=== PATIENT | female | born 1970 | race Caucasian/White ===

== ENCOUNTER → 2016-05-23 | Outpatient (CLI) | payer MEDICARE, MEDICAID ==
[~2016-05-23] MED LIST: AMARYL4 MG PO; AMOXICILLIN500 MG PO; ASPIRIN81 M1 PO; AUGMENTIN 875 M1 TAB PO; AUGMENTIN 875875 MG PO; AVELOX400 MG PO; BACTRIM DS 8001 TA1 PO; BISOPROLOL FUMA10 MG PO; BISOPROLOL FUMAR5 MG PO; BYDUREON PEN2 MG IM; CEFTIN500 MG PO; CIPRO500 MG PO; CIPROFLOXACIN500 MG PO; CLARITIN10 MG PO; CYCLOBENZAPRINE10 MG PO; DIABETA5 MG PO; DIFLUCAN100 MG PO; DOXYCYCLINE100 M2 PO; FLAGYL500 MG PO; FLONASE ALLERG9.9 ML NAS; GLYBURIDE1.5 MG PO; HUMULIN R500 UNIT/1 SC; HYDROCODONE BIT1 T11 PO; IBUPROFEN800 MG PO; INVOKAMET1 TA3 PO; INVOKANA PO; KEFLEX500 MG PO; LANTUS100 U/ML SC; LASIX20 MG PO; LEVOFLOXACIN500 MG PO; LIPITOR20 MG PO; LORAZEPAM0.5 MG PO; MECLIZINE HCL25 M2 PO; METFORMIN1000 MG PO; MOTRIN800 MG PO; MUPIROCIN2% T; Motrin,Rufen800 MG PO; NEURONTIN100 MG PO; NEURONTIN300 MG PO; NITROSTAT0.4 MG SL; NOVAPLUS LIDOCAINE5% TP; NOVOLOG MI100 UNIT/2 SQ; NOVOLOG100 U/ML SC; PRENATAL1 TA7 PO; TOPAMAX100 MG PO; ULTRAM50 MG PO; VIBRAMYCIN100 MG PO; VICODIN 5/500 505 MG PO; VICODIN ES 7501 TAB PO; VICTOZA6 MG/ML SC; VIMPAT100 MG PO; XANAX0.25 MG PO; XYLOCAINE 5% T; ZOFRAN ODT4 MG SL; Zofran4 MG PO
[2016-05-23 11:15] LABS: HEMOGLOBIN A1c 7.5 % (4.8-5.6)
[2016-05-23 11:21] LABS: ALBUMIN 3.9 gm/dl (3.1-4.5); ALKALINE PHOSPHATASE 69 U/L (45-117); BILIRUBIN, TOTAL 0.6 mg/dl (0.2-1.0); BUN 21 mg/dl (7-24); CARBON DIOXIDE 26 mmol/L (21-32); CHLORIDE 105 mmol/L (98-107); CHOLESTEROL 209 mg/dL (<200); EST GLOM FILT AFRICAN AMERICAN > 60 ml/min; GLUCOSE 117 mg/dL (65-99); HDL CHOLESTEROL 43 mg/dl (40-60); LDL CHOLESTEROL 129 mg/dL (9-159); MAGNESIUM 2.3 mg/dL (1.5-2.1); POTASSIUM 4.1 mmol/L (3.5-5.1); SGOT/AST 12 IU/L (3-35); SGPT/ALT 25 U/L (12-78); SODIUM 140 mmol/L (136-145); TOTAL PROTEIN 7.9 gm/dL (6.4-8.2); TRIGLYCERIDES 186 mg/dl (<150); VLDL CHOLESTEROL 37 mg/dL (6-40)
== END | disposition home or self-care (01) ==
LOC: LAB 09:55
PROVIDERS: Physician Assistant Medical
DX: E11.65 Type 2 diabetes mellitus with hyperglycemia (principal); I10 Essential (primary) hypertension; E03.9 Hypothyroidism, unspecified; E55.9 Vitamin D deficiency, unspecified; E78.00 Pure hypercholesterolemia, unspecified

== ENCOUNTER → 2016-08-22 | Outpatient (CLI) | payer MEDICARE, MEDICAID ==
[2016-08-22 10:42] LABS: ALBUMIN 3.6 gm/dl (3.1-4.5); ALKALINE PHOSPHATASE 72 U/L (45-117); BILIRUBIN, TOTAL 0.4 mg/dl (0.2-1.0); BUN 14 mg/dl (7-24); CARBON DIOXIDE 28 mmol/L (21-32); CHLORIDE 106 mmol/L (98-107); CHOLESTEROL 157 mg/dL (<200); EST GLOM FILT AFRICAN AMERICAN > 60 ml/min; GLUCOSE 78 mg/dL (65-99); HDL CHOLESTEROL 36 mg/dl (40-60); LDL CHOLESTEROL 92 mg/dL (9-159); POTASSIUM 3.8 mmol/L (3.5-5.1); SGOT/AST 13 IU/L (3-35); SGPT/ALT 28 U/L (12-78); SODIUM 145 mmol/L (136-145); TOTAL PROTEIN 7.2 gm/dL (6.4-8.2); TRIGLYCERIDES 146 mg/dl (<150); VLDL CHOLESTEROL 29 mg/dL (6-40)
[2016-08-22 11:34] LABS: HEMOGLOBIN A1c 8.1 % (4.8-5.6)
== END | disposition home or self-care (01) ==
LOC: LAB 09:55
PROVIDERS: Physician Assistant Medical
DX: E11.65 Type 2 diabetes mellitus with hyperglycemia (principal); I10 Essential (primary) hypertension; E78.00 Pure hypercholesterolemia, unspecified; E04.2 Nontoxic multinodular goiter; E55.9 Vitamin D deficiency, unspecified

== ENCOUNTER → 2016-10-30 | Outpatient (CLI) | payer MEDICARE, MEDICAID ==
[2016-10-30 08:40] LABS: HEMOGLOBIN A1c 9.1 % (4.8-5.6)
[2016-10-30 08:43] LABS: ALBUMIN 3.4 gm/dl (3.1-4.5); ALKALINE PHOSPHATASE 74 U/L (45-117); BILIRUBIN, TOTAL 0.5 mg/dl (0.2-1.0); BUN 14 mg/dl (7-24); CARBON DIOXIDE 26 mmol/L (21-32); CHLORIDE 103 mmol/L (98-107); EST GLOM FILT AFRICAN AMERICAN > 60 ml/min; GLUCOSE 216 mg/dL (65-99); POTASSIUM 3.9 mmol/L (3.5-5.1); SGOT/AST 12 IU/L (3-35); SGPT/ALT 26 U/L (12-78); SODIUM 138 mmol/L (136-145); TOTAL PROTEIN 7.2 gm/dL (6.4-8.2)
== END | disposition home or self-care (01) ==
LOC: LAB 07:38
DX: E11.65 Type 2 diabetes mellitus with hyperglycemia (principal)

== ENCOUNTER → 2017-04-09 | Outpatient (CLI) | payer MEDICARE, MEDICAID ==
[2017-04-09 10:10] LABS: ALBUMIN 3.8 gm/dl (3.1-4.5); BUN 14 mg/dl (7-24); CHLORIDE 106 mmol/L (98-107); CHOLESTEROL 171 mg/dL (<200); CREATININE 0.79 mg/dL (0.55-1.02); POTASSIUM 3.3 mmol/L (3.5-5.1); SGOT/AST 15 IU/L (3-35); SGPT/ALT 28 U/L (12-78); SODIUM 142 mmol/L (136-145); TRIGLYCERIDES 151 mg/dl (<150); VLDL CHOLESTEROL 30 mg/dL (6-40)
[2017-04-09 10:12] LABS: ALKALINE PHOSPHATASE 81 U/L (45-117); HDL CHOLESTEROL 34 mg/dl (40-60); LDL CHOLESTEROL 107 mg/dL (9-159); TOTAL PROTEIN 7.6 gm/dL (6.4-8.2)
== END | disposition home or self-care (01) ==
LOC: LAB 08:54
PROVIDERS: Physician Assistant Medical
DX: I10 Essential (primary) hypertension (principal); E11.65 Type 2 diabetes mellitus with hyperglycemia; E78.00 Pure hypercholesterolemia, unspecified; E03.9 Hypothyroidism, unspecified; E55.9 Vitamin D deficiency, unspecified

== ENCOUNTER 2017-04-12 10:07 | Emergency (ER) | payer MEDICARE, MEDICAID ==
[~2017-04-12] VITALS: Ht 165.1 cm; Wt 96.6 kg
[2017-04-12 10:19] VITALS: BP 116/87
[2017-04-12] MEDS ORDERED: PREDNISONE10 MG PO (10:31)
[2017-04-12] MEDS ORDERED: EPIPEN 2-P0.3 MG/0.3 IJ (10:31)
== END 2017-04-12 11:16 | disposition home or self-care (01) ==
LOC: ED 10:07
DX: T78.40XA Allergy, unspecified, initial encounter (principal); E11.65 Type 2 diabetes mellitus with hyperglycemia; E11.40 Type 2 diabetes mellitus with diabetic neuropathy, unspecified; E78.5 Hyperlipidemia, unspecified; G40.909 Epilepsy, unspecified, not intractable, without status epilepticus; R00.0 Tachycardia, unspecified; Z88.8 Allergy status to other drugs, medicaments and biological substances; Z79.82 Long term (current) use of aspirin; Z79.4 Long term (current) use of insulin; Z79.899 Other long term (current) drug therapy; Z90.710 Acquired absence of both cervix and uterus; Z90.49 Acquired absence of other specified parts of digestive tract; Z90.89 Acquired absence of other organs; X58.XXXA Exposure to other specified factors, initial encounter

== ENCOUNTER 2017-04-20 08:15 | Emergency (ER) | payer MEDICARE, MEDICAID ==
[~2017-04-20] VITALS: Ht 165.1 cm; Wt 96.6 kg
[~2017-04-20 08:15] MED LIST changes: +EPIPEN 2-P0.3 MG/0.3 IJ; +PREDNISONE10 MG PO
[2017-04-20 08:50] LABS: BASO % 0.1 % (0.0-1.0); EOS # 0.1 10*3/uL (0.0-0.4); EOS % 0.7 % (1.0-4.0); HEMATOCRIT 44.8 % (37.0-47.0); HEMOGLOBIN 15.5 g/dl (12.0-16.0); LYMPH # 0.7 10*3/uL (1.3-4.4); LYMPH % 5.1 % (27.0-41.0); MEAN CELL VOLUME 83.4 fl (81.0-99.0); MEAN CORPUSCULAR HGB 28.9 pg (27.0-31.0); MEAN CORPUSCULAR HGB CONC 34.6 g/dl (33.0-37.0); MEAN PLATELET VOLUME 10.2 fl (9.6-12.3); MONO # 0.5 10*3/uL (0.1-1.0); NEUT # 11.9 10*3/uL (2.3-7.9); NEUT % 89.2 % (47.0-73.0); PLATELET COUNT AUTOMATED 221 10*3/uL (130-400); RED BLOOD COUNT 5.37 10*6/uL (4.10-5.10); RED CELL DISTRI WIDTH 12.8 % (0-14.5); WHITE BLOOD COUNT 13.4 10*3/uL (4.8-10.8)
[2017-04-20 08:59] LABS: ACT PARTIAL THROMBO TIME 20.4 SECONDS (20.8-31.5); INTERNATIONAL NORM RATIO 0.9 (2.0-3.5)
[2017-04-20 09:07] LABS: ALBUMIN 3.7 gm/dl (3.1-4.5); ALKALINE PHOSPHATASE 87 U/L (45-117); BUN 18 mg/dl (7-24); CHLORIDE 98 mmol/L (98-107); CREATININE 0.81 mg/dL (0.55-1.02); POTASSIUM 4.4 mmol/L (3.5-5.1); SGOT/AST 37 IU/L (3-35); SGPT/ALT 37 U/L (12-78); SODIUM 132 mmol/L (136-145); TOTAL PROTEIN 7.7 gm/dL (6.4-8.2)
[2017-04-20 09:14] LABS: TROPONIN I < 0.015 ng/ml (<0.045)
[2017-04-20 11:00] VITALS: BP 111/69
== END 2017-04-20 14:30 | disposition short-term general hospital (02) ==
LOC: ED 08:15
PROVIDERS: Emergency Medicine
DX: R53.1 Weakness (principal); R07.89 Other chest pain; R51 Headache; R11.10 Vomiting, unspecified; E11.65 Type 2 diabetes mellitus with hyperglycemia; E11.40 Type 2 diabetes mellitus with diabetic neuropathy, unspecified; E78.5 Hyperlipidemia, unspecified; G40.909 Epilepsy, unspecified, not intractable, without status epilepticus; Z98.890 Other specified postprocedural states; Z98.2 Presence of cerebrospinal fluid drainage device; Z90.710 Acquired absence of both cervix and uterus; Z79.899 Other long term (current) drug therapy; Z79.82 Long term (current) use of aspirin; Z79.4 Long term (current) use of insulin; Z88.8 Allergy status to other drugs, medicaments and biological substances

== ENCOUNTER → 2017-10-10 | Outpatient (CLI) | payer OTHER, MEDICAID ==
[2017-10-10 10:38] LABS: THYROID STIM HORMONE (HS) 1.74 uIU/ml (0.358-4.75)
== END | disposition home or self-care (01) ==
LOC: LAB 09:03
DX: E11.65 Type 2 diabetes mellitus with hyperglycemia (principal); E78.2 Mixed hyperlipidemia; E03.9 Hypothyroidism, unspecified

== ENCOUNTER → 2018-05-22 | Outpatient (CLI) | payer OTHER, MEDICAID ==
[~2018-05-22] MED LIST changes: +TAMIFLU 75MG CA75 MG PO
[2018-05-22 12:53] LABS: ALBUMIN 3.5 gm/dl (3.1-4.5); ALKALINE PHOSPHATASE 80 U/L (45-117); BILIRUBIN, DIRECT 0.2 mg/dL (0.0-0.2); BUN 20 mg/dl (7-24); CHLORIDE 100 mmol/L (98-107); CHOLESTEROL 187 mg/dL (<200); CREATININE 0.89 mg/dL (0.55-1.02); HDL CHOLESTEROL 33 mg/dl (40-60); LDL CHOLESTEROL 109 mg/dL (9-159); PHOSPHOROUS 4.1 mg/dL (2.5-4.9); SGOT/AST 12 IU/L (3-35); SGPT/ALT 24 U/L (12-78); SODIUM 134 mmol/L (136-145); THYROXINE (T4) TOTAL 10.7 ug/dl (4.8-13.9); TOTAL PROTEIN 7.3 gm/dL (6.4-8.2); TRIGLYCERIDES 224 mg/dl (<150); VLDL CHOLESTEROL 45 mg/dL (6-40)
[2018-05-22 12:58] LABS: THYROID STIM HORMONE (HS) 0.926 uIU/ml (0.358-4.75)
== END | disposition home or self-care (01) ==
LOC: MAMMO 05-21 08:20 → LAB 11:23 → MAMMO 11:30
PROVIDERS: Internal Medicine
DX: Z12.31 Encounter for screening mammogram for malignant neoplasm of breast (principal); E11.42 Type 2 diabetes mellitus with diabetic polyneuropathy; I10 Essential (primary) hypertension

== ENCOUNTER 2018-11-03 13:01 | Emergency (ER) | payer OTHER ==
[~2018-11-03] VITALS: Wt 92.1 kg
[2018-11-03 13:01] VITALS: BP 124/82
[2018-11-03 13:39] LABS: BASO # 0.1 10*3/uL (0.0-0.1); BASO % 0.4 % (0.0-1.0); EOS # 0.1 10*3/uL (0.0-0.4); EOS % 0.6 % (1.0-4.0); HEMATOCRIT 43.9 % (37.0-47.0); HEMOGLOBIN 14.8 g/dl (12.0-16.0); LYMPH # 1.5 10*3/uL (1.3-4.4); LYMPH % 11.2 % (27.0-41.0); MEAN CELL VOLUME 88.2 fl (81.0-99.0); MEAN CORPUSCULAR HGB 29.7 pg (27.0-31.0); MEAN CORPUSCULAR HGB CONC 33.7 g/dl (33.0-37.0); MEAN PLATELET VOLUME 10.2 fl (9.6-12.3); MONO # 0.8 10*3/uL (0.1-1.0); MONO % 5.7 % (3.0-9.0); NEUT # 11.1 10*3/uL (2.3-7.9); NEUT % 81.4 % (47.0-73.0); PLATELET COUNT AUTOMATED 237 10*3/uL (130-400); RED BLOOD COUNT 4.98 10*6/uL (4.10-5.10); RED CELL DISTRI WIDTH 12.9 % (0-14.5); WHITE BLOOD COUNT 13.6 10*3/uL (4.8-10.8)
[2018-11-03 13:50] LABS: BILIRUBIN NEGATIVE (NEGATIVE); BLOOD 3+ (NEGATIVE); CLARITY CLOUDY (CLEAR); COLOR YELLOW (YELLOW); GLUCOSE 3+ (NEGATIVE); KETONE 2+ (NEGATIVE); LEUKO ESTERASE TRACE (NEGATIVE); NITRITE NEGATIVE (NEGATIVE); UROBILINOGEN 0.2 E.U./dl (0.2-1.0)
[2018-11-03 13:53] LABS: ALBUMIN 3.9 gm/dl (3.1-4.5); ALKALINE PHOSPHATASE 95 U/L (45-117); BUN 16 mg/dl (7-24); CHLORIDE 104 mmol/L (98-107); POTASSIUM 4.1 mmol/L (3.5-5.1); SGOT/AST 8 IU/L (3-35); SGPT/ALT 19 U/L (12-78); SODIUM 139 mmol/L (136-145); TOTAL PROTEIN 7.8 gm/dL (6.4-8.2)
[2018-11-03 14:01] LABS: BACTERIA TRACE; EPITHELIAL CELLS 0-2; RBC TNTC rbc/hpf (0-2); YEAST TRACE
[2018-11-03] MEDS ORDERED: CEFUROXIME AXE500 MG PO (14:41)
[2018-11-03] MEDS ORDERED: PYRIDIUM200 M1 PO (14:41)
== END 2018-11-03 14:50 | disposition home or self-care (01) ==
LOC: ED 13:01
PROVIDERS: Nurse Practitioner Family
DX: N30.00 Acute cystitis without hematuria (principal); R53.83 Other fatigue; Z79.899 Other long term (current) drug therapy; Z79.82 Long term (current) use of aspirin; Z88.8 Allergy status to other drugs, medicaments and biological substances; Z87.442 Personal history of urinary calculi; Z90.710 Acquired absence of both cervix and uterus; Z98.890 Other specified postprocedural states; Z90.49 Acquired absence of other specified parts of digestive tract

== ENCOUNTER 2019-03-06 14:08 | Inpatient (IN) | payer OTHER ==
[~2019-03-06] VITALS: Ht 165.1 cm; Wt 90.7 kg
[~2019-03-06 14:08] MED LIST changes: +CEFUROXIME AXE500 MG PO; -LIPITOR20 MG PO; +LIPITOR40 MG PO; +PYRIDIUM200 M1 PO; +TOPAMAX100 M1 PO; -TOPAMAX100 MG PO
[2019-03-06 14:10] VITALS: BP 128/82
--- NOTE | 2019-03-06 14:23 | NUR ---
PT IN CT AT THIS TIME.
[2019-03-06 14:50] VITALS: BP 123/80
--- NOTE | 2019-03-06 15:04 | NUR ---
PT REPORTS SHE IS FEELING BETTER AT THIS TIME.
[2019-03-06 15:07] VITALS: BP 126/82
[2019-03-06 15:08] LABS: BASO # 0.1 10*3/uL (0.0-0.1); BASO % 0.4 % (0.0-1.0); EOS % 0.2 % (1.0-4.0); HEMATOCRIT 41.1 % (37.0-47.0); HEMOGLOBIN 14.2 g/dl (12.0-16.0); MEAN CELL VOLUME 87.1 fl (81.0-99.0); MEAN CORPUSCULAR HGB 30.1 pg (27.0-31.0); MEAN CORPUSCULAR HGB CONC 34.5 g/dl (33.0-37.0); MEAN PLATELET VOLUME 10.2 fl (9.6-12.3); MONO # 0.7 10*3/uL (0.1-1.0); MONO % 5.8 % (3.0-9.0); NEUT # 10.5 10*3/uL (2.3-7.9); NEUT % 84.9 % (47.0-73.0); PLATELET COUNT AUTOMATED 236 10*3/uL (130-400); RED BLOOD COUNT 4.72 10*6/uL (4.10-5.10); RED CELL DISTRI WIDTH 12.5 % (0-14.5); WHITE BLOOD COUNT 12.3 10*3/uL (4.8-10.8)
[2019-03-06 15:24] LABS: ALBUMIN 3.7 gm/dl (3.1-4.5); ALKALINE PHOSPHATASE 90 U/L (45-117); B-hCG (QUALITATIVE) NEGATIVE (NEGATIVE); BUN 20 mg/dl (7-24); CHLORIDE 100 mmol/L (98-107); CREATININE 1.12 mg/dL (0.55-1.02); LIPASE 159 U/L (73-393); POTASSIUM 4.3 mmol/L (3.5-5.1); SGOT/AST 11 IU/L (3-35); SGPT/ALT 19 U/L (12-78); SODIUM 131 mmol/L (136-145)
[2019-03-06 15:25] LABS: ACT PARTIAL THROMBO TIME 26.5 SECONDS (20.0-32.1); INTERNATIONAL NORM RATIO 0.9 (2.0-3.5)
[2019-03-06 15:26] LABS: ABG BASE EXCESS -0.7 mmol/L (-2.0-2.0); ABG HCO3 21.5 mmol/l (22-26); ABG O2 SATURATION 97.5 % (95-97); ARTERIAL BLOOD GAS PCO2 29.6 mmHg (35-45); ARTERIAL BLOOD GAS PH 7.473 (7.35-7.45)
[2019-03-06 15:30] LABS: THYROID STIM HORMONE (HS) 0.525 uIU/ml (0.358-4.75)
[2019-03-06 15:32] LABS: ETHYL ALCOHOL < 3.0 mg/dl (<3); TROPONIN I < 0.015 ng/ml (<0.045)
[2019-03-06 15:33] LABS: ACETAMINOPHEN (TYLENOL) < 5.0 ug/ml (10-30)
[2019-03-06 15:47] LABS: BILIRUBIN NEGATIVE (NEGATIVE); BLOOD NEGATIVE (NEGATIVE); CLARITY CLEAR (CLEAR); COLOR YELLOW (YELLOW); GLUCOSE 3+ (NEGATIVE); KETONE 1+ (NEGATIVE); LEUKO ESTERASE NEGATIVE (NEGATIVE); NITRITE NEGATIVE (NEGATIVE); PH 5.5 (5.0-9.0); UROBILINOGEN 0.2 E.U./dl (0.2-1.0)
[2019-03-06 15:59] LABS: URINE AMPHETAMINES < 1000 (1000ng/ml); URINE BARBITURATES < 200 (200ng/ml); URINE BENZODIAZEPINES < 200 (200ng/ml); URINE CANNABINOIDS (THC) < 50 (50ng/ml); URINE COCAINE < 300 (300ng/ml); URINE METHADONE < 300 (300ng/ml); URINE OPIATES < 300 (300ng/ml)
[2019-03-06 16:01] LABS: BACTERIA 1+
[2019-03-06 16:03] LABS: URINE PHENCYCLIDINE < 25 (25ng/ml)
[2019-03-06 16:29] VITALS: BP 123/80
[2019-03-06 17:40] VITALS: BP 106/67
--- NOTE | 2019-03-06 17:40 | NUR ---
A 48, admitted to ICCU, under the services of JEN Miranda DO with a diagnosis of SEPSIS,METABOLIC ENCEPHALOPATHY. Chief complaint is VOMITING,GARBLED SPEECH. Patient arrived via stretcher from ER. Monitor applied. Initial assessment completed. Vital signs taken and recorded. JEN MIRANDA DO notified of admission to the unit. Orders received. See assessment for past medical history, medications and allergies. Patient and/or family oriented to unit. [facility] ICCU visitation policy reviewed. Clothing/patient valuable form completed. ALEAH CROWLEY
[2019-03-06] MEDS ORDERED: ASPIR-TRIN325 MG PO (18:19)
--- NOTE | 2019-03-06 18:20 | NUR ---
DR REYES AWARE OF NEED FOR WOUND CARE ORDERS
[2019-03-06] MEDS ORDERED: ACETAZOLAMIDE250 MG PO (18:21)
[2019-03-06] MEDS ORDERED: PLAVIX75 M1 PO (18:22)
[2019-03-06] MEDS ORDERED: DICLOFENAC SOD50 MG PO (18:24)
[2019-03-06] MEDS ORDERED: NEURONTIN600 MG PO (18:26)
[2019-03-06] MEDS ORDERED: HYDROCODONE AC PO (18:28)
[2019-03-06] MEDS ORDERED: METOPROLOL SUCC50 M1 PO (18:31)
[2019-03-06] MEDS ORDERED: ZOFRAN4 MG PO (18:32)
[2019-03-06] MEDS ORDERED: ZANTAC 150150 MG PO (18:36)
--- NOTE | 2019-03-06 18:49 | NUR ---
IV LOPRESSOR GIVEN
--- NOTE | 2019-03-06 19:20 | NUR ---
DR RAMIREZ NOTIFIED OF CONSULT
--- NOTE | 2019-03-06 19:50 | NUR ---
PATIENT GIVEN TYLENOL FOR TEMP OF 102.1. WILL MONITOR
[2019-03-06 20:00] VITALS: BP 98/53
--- NOTE | 2019-03-06 23:18 | NUR ---
RECHECKED PATIENTS TEMP NOW 100.0 WILL CONTINUE TO MONITOR.
[2019-03-07] VITALS: BP 96/61
[2019-03-07 04:00] VITALS: BP 115/71
[2019-03-07 05:39] LABS: ALBUMIN 2.9 gm/dl (3.1-4.5); ALKALINE PHOSPHATASE 66 U/L (45-117); BUN 14 mg/dl (7-24); CHLORIDE 109 mmol/L (98-107); CHOLESTEROL 141 mg/dL (<200); CREATININE 0.64 mg/dL (0.55-1.02); HDL CHOLESTEROL 29 mg/dl (40-60); LDL CHOLESTEROL 89 mg/dL (9-159); PHOSPHOROUS 2.2 mg/dL (2.5-4.9); POTASSIUM 3.5 mmol/L (3.5-5.1); SGOT/AST 6 IU/L (3-35); SGPT/ALT 12 U/L (12-78); SODIUM 139 mmol/L (136-145); TOTAL PROTEIN 6.1 gm/dL (6.4-8.2); TRIGLYCERIDES 115 mg/dl (<150); VLDL CHOLESTEROL 23 mg/dL (6-40)
[2019-03-07 06:01] LABS: BASO % 0.4 % (0.0-1.0); EOS % 0.3 % (1.0-4.0); HEMATOCRIT 35.4 % (37.0-47.0); HEMOGLOBIN 11.7 g/dl (12.0-16.0); LYMPH # 1.7 10*3/uL (1.3-4.4); LYMPH % 21.1 % (27.0-41.0); MEAN CELL VOLUME 88.9 fl (81.0-99.0); MEAN CORPUSCULAR HGB 29.4 pg (27.0-31.0); MEAN CORPUSCULAR HGB CONC 33.1 g/dl (33.0-37.0); MEAN PLATELET VOLUME 10.3 fl (9.6-12.3); MONO # 0.6 10*3/uL (0.1-1.0); MONO % 7.4 % (3.0-9.0); NEUT # 5.6 10*3/uL (2.3-7.9); NEUT % 70.3 % (47.0-73.0); PLATELET COUNT AUTOMATED 207 10*3/uL (130-400); RED BLOOD COUNT 3.98 10*6/uL (4.10-5.10); RED CELL DISTRI WIDTH 12.6 % (0-14.5)
[2019-03-07 07:06] LABS: VITAMIN D, 25-HYDROXY 16.9 ng/mL (30-100)
[2019-03-07 08:00] VITALS: BP 113/70
--- NOTE | 2019-03-07 08:11 | NUR ---
PATIENT C/O HEADACHE. MEDICATED WITH TYLENOL PER PRN ORDER.
[2019-03-07 12:00] VITALS: BP 113/61
[2019-03-07 16:00] VITALS: BP 108/70
--- NOTE | 2019-03-07 18:30 | NUR ---
CALLED INTO PT'S ROOM, PT STATES AREA ON HER RIGHT LOWER LEG THAT HAS A SCABBED AREA WAS PREVIOUSLY REDENNED JUST AROUND THE SCAB, BUT NOW NOTES THAT REDNESS IS SPREADING. STATES THIS IS THE AREA SHE TYPICALLY GETS CELLULITIS. SPOKE WITH DR ROBERT REGARDING THIS, STATES TO CONTINUE MONTIORING IT.
[2019-03-07 20:00] VITALS: BP 116/69
[2019-03-08] VITALS (10 sets, daily range): BP systolic 82–117; BP diastolic 50–82
[2019-03-08 06:57] LABS: BASO # 0.1 10*3/uL (0.0-0.1); BASO % 0.6 % (0.0-1.0); EOS # 0.2 10*3/uL (0.0-0.4); HEMATOCRIT 36.5 % (37.0-47.0); HEMOGLOBIN 11.7 g/dl (12.0-16.0); LYMPH # 2.8 10*3/uL (1.3-4.4); LYMPH % 31.4 % (27.0-41.0); MEAN CELL VOLUME 90.8 fl (81.0-99.0); MEAN CORPUSCULAR HGB 29.1 pg (27.0-31.0); MEAN CORPUSCULAR HGB CONC 32.1 g/dl (33.0-37.0); MEAN PLATELET VOLUME 9.9 fl (9.6-12.3); MONO # 0.9 10*3/uL (0.1-1.0); MONO % 9.6 % (3.0-9.0); NEUT % 55.8 % (47.0-73.0); PLATELET COUNT AUTOMATED 209 10*3/uL (130-400); RED BLOOD COUNT 4.02 10*6/uL (4.10-5.10); RED CELL DISTRI WIDTH 13.2 % (0-14.5)
[2019-03-08 07:32] LABS: BUN 14 mg/dl (7-24); CHLORIDE 112 mmol/L (98-107); CREATININE 0.91 mg/dL (0.55-1.02); SODIUM 138 mmol/L (136-145)
--- NOTE | 2019-03-08 08:25 | NUR ---
PT CALLED OUT, STATING SHE FEELS LIKE SHE NEEDS SOMETHING FOR HER NERVES, PT IS TEARFUL AT THIS TIME. STATES SHE IS UPSET BECAUSE SHE FEELS LIKE SHE IS DEVELOPING CELLULITIS AGAIN. CALL PLACED TO DR ROBERT. STATES THEY WILL BE AROUND TO SEE PT.
--- NOTE | 2019-03-08 10:37 | NUR ---
DR AN MADE AWARE OF NEW CONSULT.
--- NOTE | 2019-03-08 15:00 | NUR ---
RIGHT LEG AND FOOT DRESSED PER ORDERS, TUBIGRIPS APPLIED. PT PREVIOUSLY DRESSED WOUNDS TO ARM.
--- NOTE | 2019-03-08 16:10 | NUR ---
BEDSIDE REPORT OBTAINED FROM SILVIO-TABATHA. PATIENT IS SITTING UP IN BED, AAOX3, FAMILY AT BEDSIDE. PATIENT VOICED NO COMPLAINTS, NO DISTRESS NOTED. RESP ARE ERND ON ROOM AIR. CALL LIGHT LEFT WITHIN REACH
--- NOTE | 2019-03-08 19:55 | NUR ---
INFORMED THAT MANUAL PRESSURE DONE AT THIS TIME OF , PATIENT STATED SHE FELT " TIRED" AND HAS BEEN CONTINUOUSLY DIZZY SINCE ADMISSION. HR 20 SPO2 98% ON ROOM AIR, FINGERSTICK BGM OF 298. STATES TO ORDER X1 1L NS BOLUS AND RECHECK PRESSURE 2HR AFTER COMPLETION, PATIENTS BED ALARM TURNED ON
--- NOTE | 2019-03-08 22:03 | NUR ---
INFORMED THATBP WAS RETAKEN 88/60 (MANUAL) D/T PATIENT STATING THAT SHE FELT WORSE THAN EARLIER, PATIENT APPEARANCE IS VASTLY PALE CONSIDERED TO AN HOUR AGO AND TOOK SEVERAL TIMES TO WAKE PATIENT UP, PATIENT LOOKS DEPLETED OF ENERGY AND WAS UNSTEADY ON HER FEET TO AMB TO BATHROOM. PATIENT IS STILL AAOX3. ASKED TO LOOK AT PATIENT, STATED NOT IN HOUSE AT THIS TIME. STATED TO GIVE PATIENT X1 MORE DOSE OF 1L NS BOLUS AND RECHECK ONCE COMPLETED AND CALL WITH RESULTS
--- NOTE | 2019-03-08 23:35 | NUR ---
CALLED AND INFORMED OF MANUAL PRESSURE OF 82/50 AFTER SECOND BLOUS COMPLETED. STATED TO TRANSFER PATIENT TO ICCU AND TO START ON LEVOPHED. INDUSTRIAL MANAGEMENT TEACHER MADE AWARE.
--- NOTE | 2019-03-08 23:40 | NUR ---
PATIENT TRANSFERED TO ICCU ROOM 5. REPORT GIVEN TO DARREN.
--- NOTE | 2019-03-08 23:45 | NUR ---
PT RECEIVED VIA BED FROM WHERE SHE HAD BEEN HAVING LOW BP'S ALL EVENING IN SPITE OF FLUID BOLUSES. PT DROWSY BUT ORIENTED AND APOLOGETIC ABOUT "CAUSING YOU GUYS ALL THIS TROUBLE". NEW IV OBTAINED LEFT UPPER ARM, #20 ACCUCATH, USING ULTRASOUND FOR GUIDANCE. BED PLACED IN LOW POSITION WITH WHEELS LOCKED AND BED EXIT ALARM ACTIVATED. PT CALLED HER SIGNIFICANT OTHER AND TOLD HIM SHE WAS NOW IN ICCU.
[2019-03-09] VITALS (41 sets, daily range): BP systolic 86–163; BP diastolic 50–85
--- NOTE | 2019-03-09 00:22 | NUR ---
Shift chart check completed.24 HR chart check completed.
--- NOTE | 2019-03-09 00:26 | NUR ---
MONITORING BP'S Q15M AND HAVE NOT STARTED LEVOPHED YET MAP BEEN >65.
--- NOTE | 2019-03-09 00:34 | NUR ---
DR HANNAH CALLED IN AND UPDATED ON CONDITION.
--- NOTE | 2019-03-09 01:28 | NUR ---
LEVOPHED STARTED AT 4MCG/MIN FOR SYSTOLIC BP 86 AND MAP JUST 65. PT EASILY AROUSES FROM SLEEP.
--- NOTE | 2019-03-09 02:51 | NUR ---
AT 0200 LEVOPHED TITRATED BY 50% TO 2MCG/MIN FOR BP 163/81 AND THEN CUT BY 50% AGAIN AT 0245 FOR BP 145/79.
--- NOTE | 2019-03-09 03:47 | NUR ---
UP TO BSC TO VOID. NO VOICED C/O DIZZINESS WHILE UP. VERY TALKATIVE. MOVES ALL EXTREMITIES. WAS STEADY GETTING UP TO BSC.
[2019-03-09 06:01] LABS: BASO # 0.1 10*3/uL (0.0-0.1); BASO % 1.1 % (0.0-1.0); EOS # 0.3 10*3/uL (0.0-0.4); EOS % 4.8 % (1.0-4.0); HEMATOCRIT 37.6 % (37.0-47.0); LYMPH # 2.4 10*3/uL (1.3-4.4); LYMPH % 35.7 % (27.0-41.0); MEAN CELL VOLUME 90.6 fl (81.0-99.0); MEAN CORPUSCULAR HGB 28.9 pg (27.0-31.0); MEAN CORPUSCULAR HGB CONC 31.9 g/dl (33.0-37.0); MEAN PLATELET VOLUME 10.1 fl (9.6-12.3); MONO # 0.7 10*3/uL (0.1-1.0); MONO % 9.8 % (3.0-9.0); NEUT # 3.2 10*3/uL (2.3-7.9); NEUT % 47.2 % (47.0-73.0); PLATELET COUNT AUTOMATED 234 10*3/uL (130-400); RED BLOOD COUNT 4.15 10*6/uL (4.10-5.10); RED CELL DISTRI WIDTH 13.1 % (0-14.5); WHITE BLOOD COUNT 6.7 10*3/uL (4.8-10.8)
[2019-03-09 06:33] LABS: BUN 13 mg/dl (7-24); CHLORIDE 113 mmol/L (98-107); CREATININE 0.87 mg/dL (0.55-1.02); POTASSIUM 4.1 mmol/L (3.5-5.1); SODIUM 139 mmol/L (136-145)
--- NOTE | 2019-03-09 08:04 | NUR ---
BP 122/64 WITH A MAP OF 83. LEVOPHED GTT THAT WAS RUNNING AT 0.5MCG TURNED OFF AT THIS TIME.
--- NOTE | 2019-03-09 10:52 | NUR ---
MILES TUCKER [id number] Please refer to the physician's history and physical for past medical history, comorbid conditions, and allergies. Diagnosis: METABOLIC ENCEPHALOPATHY SEVERE SEPSIS Chacho Score: 21,LOW OR NO RISK WOUND DESCRIPTIONS: Wound Number: 1 Location of the wound: back of right upper arm Thickness: Partial Size: 0.6cm x 1.0cm x 0.1cm Tunneling: none Undermining: none Sinus Tract: none Presence of Exudate: Serous Amount: Light Color: Red, brown Odor: None Periwound Skin Appearance: Erythema Wound edges: approximated Pain (associated with wound): none at time of assessment pt states they are itchy How does patient state this happened? Patient stated she wore shoes at her mother and father 50 wedding renewal and she stated he feet swelled and she started with this blister on her great toe and was being treated with ankle and foot but doesn't want to continue following care there and she stated after that happened more areas appeared to her right side and no other place on her body. Wound Number 2: Right elbow dry patch noted. No drainage at time of assessment. No redness surrounding area at time of assessment. Wound Number: 3 Location of the wound: right upper lateral forearm Thickness: Partial Size: 0.6cm x 0.5cm x 0.1cm Tunneling: none Undermining: none Sinus Tract: none Presence of Exudate: Serous Amount: Light Color: Red, brown Odor: None Periwound Skin Appearance: Erythema Wound edges: approximated Pain (associated with wound): none at time of assessment pt states they are Itchy How does patient state this happened? Patient stated she wore shoes at her mother and father 50 wedding renewal and she stated he feet swelled and she started with this blister on her great toe and was being treated with ankle and foot but doesn't want to continue following care there and she stated after that happened more areas appeared to her right side and no other place on her body. Wound Number: 4 Location of the wound: right lateral forearm medial Thickness: Partial Size: 0.6cm x 0.6cm x 0.1cm Tunneling: none Undermining: none Sinus Tract: none Presence of Exudate: Serous Amount: Light Color: Red, brown Odor: None Periwound Skin Appearance: Erythema Wound edges: approximated Pain (associated with wound): none at time of assessment pt states they are Itchy How does patient state this happened? Patient stated she wore shoes at her mother and father 50 wedding renewal and she stated he feet swelled and she started with this blister on her great toe and was being treated with ankle and foot but doesn't want to continue following care there and she stated after that happened more areas appeared to her right side and no other place on her body. Wound Number: 5 Location of the wound: right lateral forearm distal Thickness: Partial Size: 0.7cm x 0.7cm x 0.1cm Tunneling: none Undermining: none Sinus Tract: none Presence of Exudate: Serous Amount: Light Color: Red, brown Odor: None Periwound Skin Appearance: Erythema Wound edges: approximated Pain (associated with wound): none at time of assessment pt states they are Itchy How does patient state this happened? Patient stated she wore shoes at her mother and father 50 wedding renewal and she stated he feet swelled and she started with this blister on her great toe and was being treated with ankle and foot but doesn't want to continue following care there and she stated after that happened more areas appeared to her right side and no other place on her body. Wound Number: 6 Location of the wound: right wrist Thickness: Partial Size: 0.5cm x 0.4cm x 0.1cm Tunneling: none Undermining: none Sinus Tract: none Presence of Exudate: Serous Amount: Light Color: Red, brown Odor: None Periwound Skin Appearance: Erythema Wound edges: approximated Pain (associated with wound): none at time of assessment pt states they are Itchy How does patient state this happened? Patient stated she wore shoes at her mother and father 50 wedding renewal and she stated he feet swelled and she started with this blister on her great toe and was being treated with ankle and foot but doesn't want to continue following care there and she stated after that happened more areas appeared to her right side and no other place on her body. Wound Number: 7 Location of the wound: right upper thigh Thickness: Partial Size: 0.5cm x 0.6cm x 0.1cm Tunneling: none Undermining: none Sinus Tract: none Presence of Exudate: Serous Amount: Light Color: Red, brown Odor: None Periwound Skin Appearance: Erythema Wound edges: approximated Pain (associated with wound): none at time of assessment pt states they are Itchy How does patient state this happened? Patient stated she wore shoes at her mother and father 50 wedding renewal and she stated he feet swelled and she started with this blister on her great toe and was being treated with ankle and foot but doesn't want to continue following care there and she stated after that happened more areas appeared to her right side and no other place on her body. Wound Number: 8 Location of the wound: right below the knee lateral Thickness: Partial Size: 0.5cm x 0.5cm x 0.1cm Tunneling: none Undermining: none Sinus Tract: none Presence of Exudate: Serous Amount: Light Color: Red, brown Odor: None Periwound Skin Appearance: Erythema Wound edges: approximated Pain (associated with wound): none at time of assessment pt states they are Itchy How does patient state this happened? Patient stated she wore shoes at her mother and father 50 wedding renewal and she stated he feet swelled and she started with this blister on her great toe and was being treated with ankle and foot but doesn't want to continue following care there and she stated after that happened more areas appeared to her right side and no other place on her body. Wound Number: 9 Location of the wound: right below the knee lateral Type of wound: stage 2 Thickness: Partial Size: 0.8cm x 0.4cm x 0.1cm Tunneling: none Undermining: none Sinus Tract: none Presence of Exudate: Serous Amount: Light Color: Red, brown Odor: None Periwound Skin Appearance: Erythema Wound edges: approximated Pain (associated with wound): none at time of assessment pt states they are Itchy How does patient state this happened? Patient stated she wore shoes at her mother and father 50 wedding renewal and she stated he feet swelled and she started with this blister on her great toe and was being treated with ankle and foot but doesn't want to continue following care there and she stated after that happened more areas appeared to her right side and no other place on her body. Surface the patient is resting on: XPRT SKIN PREVENTION RECOMMENDATION: 1. Pressure redistribution support surface as appropriate 2. Elevate heels 3. Remove boots/TEDS every shift and reapply 4. Head of bed 30 degrees as tolerated 5. Assess nutrition and hydration 6. Manage moisture 7. Avoid the use of containment devices while in bed 8. Use absorptive products on surfaces limit layers of linens on bed 9. Turn and reposition every 1-2 hours in bed and every 1 hour in chair as tolerated 10. Weight shifts every 15 minutes while up in chair 11. Offloading with pillows or device to keep heels elevated off bed 12. Monitor skin at least every shift 13. Inspect under medical devices twice a day WOUND TREATMENT RECOMMENDATIONS: Podiatry is already on consult for right great toe. Clarify Partial thickness guidelines: Cleanse right upper thigh, right knee lateral aspect below knee, right wrist, right forearm distal, right forearm medial, right forearm distal, right posterior upper arm with nss and apply sureprep around the wound therahoney to wound bed and cover with optifoam every 2 days and prn. Follow up in the wound care center with Argelia DE LA ROSA 03/13/19 @ 9:00am.
--- NOTE | 2019-03-09 12:36 | NUR ---
Nutritional Support Services Note: Discussing with pt and pts parents 1800cal diabetic diet. Diet copy given to pt. Appetite is good for meals, she is eating 100% of all meals. Ht.5'5 Wt.200#. Pt states she has lost almost 50# this past year by giving up regular pop. She has a fairly good understanding of the diet, although compliance is poor. Father is also a diabetic. Wounds noted to right great toe, below knee, right wrist, right upper forearm, right elbow, right back of arm. Stressed importance of compliance to diet to promote healing, encouraged adequate protein on a daily basis. All questions were answered. Encouraged follow up if needed. No other nutrition intervention needed at this time. Veronica Foster Rdn Ld
--- NOTE | 2019-03-09 14:32 | NUR ---
Diesel Trailer Mechanic in to talk to patient. Patient states lives at HOME with AND KIDS. There are NO steps in the home. Physician: TRAMAINE [facility] [place] [facility] Patient's level of ADLs: INDEPENDENT Patient has working utilities: YES DME: NONE Follow-up physician's appointment after d/c: WILL BE MADE BY HOSPITALIST NURSE DIRECTOR ON DISCHARGE Does patient want to access PORTAL?: NO Discharge plan PT LIVES AT HOME WITH AND FAMILY. DENIES SHE WILL HAVE ANY NEEDS ON DISCHARGE. STATES SHE IS INDEPENDENT AND WORKS. WILL CONTINUE TO FOLLOW. WILL HAVE A RIDE HOME WHEN DISCHARGE. . MARCO A BARCLAY
[2019-03-10] VITALS: BP 105/58
--- NOTE | 2019-03-10 08:36 | NUR ---
Dr. Lake notified of wound care recommendations.
[2019-03-10 12:00] VITALS: BP 129/72
--- NOTE | 2019-03-10 12:41 | NUR ---
PT CONTINUES TO STATE SHE WILL RETURN HOME WITH NO NEW NEEDS. WILL CONTINUE TO FOLLOW.
[2019-03-10 16:00] VITALS: BP 131/83
[2019-03-10 20:00] VITALS: BP 114/64
[2019-03-11] VITALS: BP 117/67
--- NOTE | 2019-03-11 01:01 | NUR ---
24 HR chart check completed.
[2019-03-11 06:31] LABS: BASO # 0.1 10*3/uL (0.0-0.1); BASO % 0.9 % (0.0-1.0); EOS # 0.3 10*3/uL (0.0-0.4); EOS % 4.5 % (1.0-4.0); HEMATOCRIT 34.9 % (37.0-47.0); HEMOGLOBIN 11.5 g/dl (12.0-16.0); LYMPH # 2.6 10*3/uL (1.3-4.4); LYMPH % 39.7 % (27.0-41.0); MEAN CELL VOLUME 89.5 fl (81.0-99.0); MEAN CORPUSCULAR HGB 29.5 pg (27.0-31.0); MEAN PLATELET VOLUME 9.4 fl (9.6-12.3); MONO # 0.5 10*3/uL (0.1-1.0); MONO % 7.1 % (3.0-9.0); NEUT % 45.8 % (47.0-73.0); PLATELET COUNT AUTOMATED 248 10*3/uL (130-400); RED CELL DISTRI WIDTH 12.9 % (0-14.5); WHITE BLOOD COUNT 6.6 10*3/uL (4.8-10.8)
[2019-03-11 06:56] LABS: BUN 12 mg/dl (7-24); CHLORIDE 115 mmol/L (98-107); CREATININE 0.71 mg/dL (0.55-1.02); POTASSIUM 3.8 mmol/L (3.5-5.1); SODIUM 142 mmol/L (136-145)
[2019-03-11 08:00] VITALS: BP 122/76
[2019-03-11] MEDS ORDERED: DOXYCYCLINE100 M3 PO (10:28)
--- NOTE | 2019-03-11 11:10 | NUR ---
PATIENT REFUSED WOUND PHOTOS DUE TO THEY WERE JUST CHANGED 2 HOURS AGO AND SHE DIDNT WANT TO GO THROUGH IT AGAIN.
--- NOTE | 2019-03-11 11:21 | NUR ---
Discharge instructions reviewed with patient/family. Patient receptive and verbalizes understanding. Follow-up care arranged. Written instructions given to patient/family. STRAIGHTENER AND ALIGNER REMOVED AND HEPLOCK DISCONTINUED. PT AMBULATORY WITH . BRENDA COTO
== END 2019-03-11 11:21 | disposition home or self-care (01) | DRG 871 ==
LOC: ED 14:08 → EDHOLD 17:07 → ICCU 17:07 → 4E 03-07 14:27 → ICCU 03-08 23:49 → 5E 03-09 14:57
PROVIDERS: Family Medicine; Internal Medicine; Student in an Organized Health Care Education/Training Program; ADMIT Emergency Medicine
DX: A41.9 Sepsis, unspecified organism (principal); R65.21 Severe sepsis with septic shock; G93.41 Metabolic encephalopathy; N17.0 Acute kidney failure with tubular necrosis; E87.1 Hypo-osmolality and hyponatremia; E87.2 Acidosis; N30.00 Acute cystitis without hematuria; E87.3 Alkalosis; L03.115 Cellulitis of right lower limb; G93.2 Benign intracranial hypertension; I10 Essential (primary) hypertension; E78.5 Hyperlipidemia, unspecified; G43.909 Migraine, unspecified, not intractable, without status migrainosus; F41.9 Anxiety disorder, unspecified; R82.4 Acetonuria; R81 Glycosuria; E11.65 Type 2 diabetes mellitus with hyperglycemia; E11.42 Type 2 diabetes mellitus with diabetic polyneuropathy; S91.101A Unspecified open wound of right great toe without damage to nail, initial encounter; X58.XXXA Exposure to other specified factors, initial encounter; H54.61 Unqualified visual loss, right eye, normal vision left eye; G40.909 Epilepsy, unspecified, not intractable, without status epilepticus; Z90.710 Acquired absence of both cervix and uterus; Z90.49 Acquired absence of other specified parts of digestive tract; Z98.891 History of uterine scar from previous surgery; Z82.61 Family history of arthritis; Z86.73 Personal history of transient ischemic attack (TIA), and cerebral infarction without residual deficits; Z85.850 Personal history of malignant neoplasm of thyroid; Z82.3 Family history of stroke; Z83.3 Family history of diabetes mellitus; Z81.8 Family history of other mental and behavioral disorders; Z82.49 Family history of ischemic heart disease and other diseases of the circulatory system; Z88.8 Allergy status to other drugs, medicaments and biological substances; Z91.040 Latex allergy status; Z79.899 Other long term (current) drug therapy; Z79.82 Long term (current) use of aspirin; Z79.4 Long term (current) use of insulin; Y93.89 Activity, other specified; Y92.89 Other specified places as the place of occurrence of the external cause; Y99.8 Other external cause status

== ENCOUNTER 2019-05-30 20:33 | Inpatient (IN) | payer OTHER ==
[~2019-05-30] VITALS: Ht 165.1 cm; Wt 90.4 kg
[~2019-05-30 20:33] MED LIST changes: +ACETAZOLAMIDE250 MG PO; +ASPIR-TRIN325 MG PO; +DICLOFENAC SOD50 MG PO; +DOXYCYCLINE100 M3 PO; +HYDROCODONE AC PO; +METOPROLOL SUCC50 M1 PO; +NEURONTIN600 MG PO; +PLAVIX75 M1 PO; +ZANTAC 150150 MG PO; +ZOFRAN4 MG PO
[2019-05-30 20:42] VITALS: BP 118/75
[2019-05-30 21:57] LABS: BASO # 0.1 10*3/uL (0.0-0.1); BASO % 0.6 % (0.0-1.0); EOS # 0.2 10*3/uL (0.0-0.4); EOS % 0.9 % (1.0-4.0); HEMATOCRIT 40.5 % (37.0-47.0); HEMOGLOBIN 13.5 g/dl (12.0-16.0); LYMPH # 3.4 10*3/uL (1.3-4.4); LYMPH % 19.9 % (27.0-41.0); MEAN CELL VOLUME 85.8 fl (81.0-99.0); MEAN CORPUSCULAR HGB 28.6 pg (27.0-31.0); MEAN CORPUSCULAR HGB CONC 33.3 g/dl (33.0-37.0); MONO # 1.3 10*3/uL (0.1-1.0); MONO % 7.7 % (3.0-9.0); NEUT # 11.9 10*3/uL (2.3-7.9); PLATELET COUNT AUTOMATED 239 10*3/uL (130-400); RED BLOOD COUNT 4.72 10*6/uL (4.10-5.10); RED CELL DISTRI WIDTH 12.5 % (0-14.5); WHITE BLOOD COUNT 17.1 10*3/uL (4.8-10.8)
[2019-05-30 22:15] LABS: ALBUMIN 3.4 gm/dl (3.1-4.5); ALKALINE PHOSPHATASE 103 U/L (45-117); BUN 16 mg/dl (7-24); CHLORIDE 99 mmol/L (98-107); CREATININE 0.87 mg/dL (0.55-1.02); POTASSIUM 3.9 mmol/L (3.5-5.1); SGOT/AST 3 IU/L (3-35); SGPT/ALT 16 U/L (12-78); SODIUM 133 mmol/L (136-145); TOTAL PROTEIN 7.7 gm/dL (6.4-8.2)
[2019-05-30 22:18] LABS: TROPONIN I < 0.015 ng/ml (<0.045)
[2019-05-31 00:22] LABS: BILIRUBIN NEGATIVE (NEGATIVE); BLOOD NEGATIVE (NEGATIVE); CLARITY CLEAR (CLEAR); COLOR YELLOW (YELLOW); GLUCOSE 3+ (NEGATIVE); KETONE 3+ (NEGATIVE)
[2019-05-31 00:23] LABS: LEUKO ESTERASE NEGATIVE (NEGATIVE); NITRITE NEGATIVE (NEGATIVE); RBC 0-2 rbc/hpf (0-2); UROBILINOGEN 0.2 E.U./dl (0.2-1.0)
[2019-05-31 00:37] VITALS: BP 111/93
--- NOTE | 2019-05-31 01:30 | NUR ---
MED REC UPDATED PER PATIENT
--- NOTE | 2019-05-31 01:32 | NUR ---
A 48, admitted to 4E, under the services of DEBORA Lugo DO with a diagnosis of CELLULITIS OF PERINEUM, SEPSIS. Chief complaint is ABSCESS OF LT GROIN, CHILLS, BODY ACHES. Patient arrived via stretcher from ER. Monitor applied. Initial assessment completed. Vital signs taken and recorded. DEBORA LUGO DO notified of admission to the unit. Orders received. See assessment for past medical history, medications and allergies. Patient and/or family oriented to unit. Clothing/patient valuable form completed. RASHAD RANDOLPH
--- NOTE | 2019-05-31 03:02 | NUR ---
INFECTIOUS DISEASE ANSWERING SERVICE NOTIFIED OF CONSULT
--- NOTE | 2019-05-31 04:07 | NUR ---
DR TOVAR STATES SHE WILL SEE PATIENT IN THE MORNING.
[2019-05-31 07:29] LABS: BASO # 0.1 10*3/uL (0.0-0.1); BASO % 0.5 % (0.0-1.0); EOS # 0.2 10*3/uL (0.0-0.4); EOS % 1.4 % (1.0-4.0); HEMATOCRIT 38.2 % (37.0-47.0); HEMOGLOBIN 12.6 g/dl (12.0-16.0); LYMPH # 2.3 10*3/uL (1.3-4.4); LYMPH % 16.4 % (27.0-41.0); MEAN CELL VOLUME 87.4 fl (81.0-99.0); MEAN CORPUSCULAR HGB 28.8 pg (27.0-31.0); MEAN PLATELET VOLUME 10.2 fl (9.6-12.3); MONO # 0.8 10*3/uL (0.1-1.0); MONO % 5.9 % (3.0-9.0); NEUT # 10.2 10*3/uL (2.3-7.9); NEUT % 74.3 % (47.0-73.0); PLATELET COUNT AUTOMATED 225 10*3/uL (130-400); RED BLOOD COUNT 4.37 10*6/uL (4.10-5.10); RED CELL DISTRI WIDTH 12.4 % (0-14.5); WHITE BLOOD COUNT 13.7 10*3/uL (4.8-10.8)
[2019-05-31 07:54] LABS: BUN 13 mg/dl (7-24); CHLORIDE 104 mmol/L (98-107); CHOLESTEROL 147 mg/dL (<200); CREATININE 0.74 mg/dL (0.55-1.02); PHOSPHOROUS 2.2 mg/dL (2.5-4.9); POTASSIUM 3.4 mmol/L (3.5-5.1); SGOT/AST 6 IU/L (3-35); SGPT/ALT 14 U/L (12-78); SODIUM 135 mmol/L (136-145); TRIGLYCERIDES 94 mg/dl (<150); VLDL CHOLESTEROL 19 mg/dL (6-40)
[2019-05-31 08:00] VITALS: BP 118/68
[2019-05-31 08:01] LABS: ALKALINE PHOSPHATASE 95 U/L (45-117); HDL CHOLESTEROL 32 mg/dl (40-60); LDL CHOLESTEROL 96 mg/dL (9-159); THYROID STIM HORMONE (HS) 0.912 uIU/ml (0.358-4.75)
[2019-05-31 12:00] VITALS: BP 107/64
--- NOTE | 2019-05-31 12:32 | NUR ---
DR MENDES NOTIFIED OF CONSULT NO NEW ORDERS RECIEVED
[2019-05-31 16:00] VITALS: BP 119/55
--- NOTE | 2019-05-31 16:30 | NUR ---
PT REQUESTED AND GIVEN NORCO FOR C/O PAIN . PT RATES PAIN 8/10 WILL MONITOR
--- NOTE | 2019-05-31 18:29 | NUR ---
PT STATES THAT [place] HELPED WILL MONITOR
[2019-05-31 20:00] VITALS: BP 107/65
--- NOTE | 2019-05-31 21:05 | NUR ---
PRN NORCO GIVEN FOR PT COMPLAINTS OF PAIN IN THE PERIAREA RATING IT 8/10. CALL LIGHT WITHIN REACH, WILL MONITOR
--- NOTE | 2019-05-31 23:00 | NUR ---
PRN MEDICATION APPEARS EFFECTIVE,PT SLEEPING
[2019-06-01] VITALS (7 sets, daily range): BP systolic 85–114; BP diastolic 47–68
--- NOTE | 2019-06-01 02:55 | NUR ---
PATIENT SLEEPING, NO DISTRESS NOTED. CALL LIGHT WITHIN REACH, WILL MONITOR
[2019-06-01 06:23] LABS: BASO # 0.1 10*3/uL (0.0-0.1); BASO % 0.7 % (0.0-1.0); EOS # 0.6 10*3/uL (0.0-0.4); HEMATOCRIT 39.3 % (37.0-47.0); HEMOGLOBIN 12.4 g/dl (12.0-16.0); LYMPH # 2.2 10*3/uL (1.3-4.4); LYMPH % 19.5 % (27.0-41.0); MEAN CELL VOLUME 89.7 fl (81.0-99.0); MEAN CORPUSCULAR HGB 28.3 pg (27.0-31.0); MEAN CORPUSCULAR HGB CONC 31.6 g/dl (33.0-37.0); MEAN PLATELET VOLUME 10.2 fl (9.6-12.3); MONO # 0.8 10*3/uL (0.1-1.0); NEUT # 7.5 10*3/uL (2.3-7.9); NEUT % 66.8 % (47.0-73.0); PLATELET COUNT AUTOMATED 236 10*3/uL (130-400); RED BLOOD COUNT 4.38 10*6/uL (4.10-5.10); RED CELL DISTRI WIDTH 12.7 % (0-14.5); WHITE BLOOD COUNT 11.2 10*3/uL (4.8-10.8)
[2019-06-01 06:32] LABS: ALBUMIN 2.9 gm/dl (3.1-4.5); ALKALINE PHOSPHATASE 95 U/L (45-117); BUN 19 mg/dl (7-24); CHLORIDE 107 mmol/L (98-107); CREATININE 0.86 mg/dL (0.55-1.02); PHOSPHOROUS 3.2 mg/dL (2.5-4.9); POTASSIUM 3.7 mmol/L (3.5-5.1); SGOT/AST 8 IU/L (3-35); SGPT/ALT 13 U/L (12-78); SODIUM 135 mmol/L (136-145)
--- NOTE | 2019-06-01 07:05 | NUR ---
MILES TUCKER [id number] Please refer to the physician's history and physical for past medical history, comorbid conditions, and allergies. Diagnosis: CELLULITIS OF PERINEUM SEPSIS Chacho Score: 19,LOW OR NO RISK WOUND DESCRIPTIONS: Wound Number: 1 Location of the wound: left medial aspect of upper thigh into labia Thickness: Full Size: 4.0cm x 2.5cm x 0.1cm Tunneling: none Undermining: none Sinus Tract: none Presence of Exudate: Serosanguineous Amount: Light Color: Yellow, red Odor: None Periwound Skin Appearance: Erythema Wound edges: approximated Pain (associated with wound): very tender to touch How does patient state this happened? pt stated that this started as what she thought was chafing and she stated that on evening that a lump started and saturday it got worse and she stated she tried to drained it herself on saturday and then again on saturday she stated that brown drainage is what she drained from the area. Surface the patient is resting on: Isoflex SKIN PREVENTION RECOMMENDATION: 1. Pressure redistribution support surface as appropriate 2. Elevate heels 3. Remove boots/TEDS every shift and reapply 4. Head of bed 30 degrees as tolerated 5. Assess nutrition and hydration 6. Manage moisture 7. Avoid the use of containment devices while in bed 8. Use absorptive products on surfaces limit layers of linens on bed 9. Turn and reposition every 1-2 hours in bed and every 1 hour in chair as tolerated 10. Weight shifts every 15 minutes while up in chair 11. Offloading with pillows or device to keep heels elevated off bed 12. Monitor skin at least every shift 13. Inspect under medical devices twice a day WOUND TREATMENT RECOMMENDATIONS: Imaging studies to rule out abscess. Dr. Singh is already on consult may need possible I & D. Warm compress QID to left medial aspect of upper thigh into labia Cleanse left medial aspect of upper thigh into labia with nss and apply dsd daily and prn for soiling. Patient stated she will follow up with Dr. Singh or in the wound care center which ever he prefers for discharge.
--- NOTE | 2019-06-01 07:14 | NUR ---
NOTIFIED DR. BARRAGAN OF PATIENT BEING LEERY ABOUT TAKING MORPHINE SINCE SHE IS NPO AND WAS WONDERING ABOUT TORADOL JUST IN CASE SHE GOES INTO SURGERY. DR. BARRAGAN STATED TO GO AHEAD AND GIVE HER THE MORPHINE AND SHE WOULD BE OK TAKING IT
--- NOTE | 2019-06-01 07:37 | NUR ---
CALLED DR. TOBAR REGARDING PT REQUESTING TORADOL FOR PAIN INSTEAD OF MORPHINE SINCE SHE IS HAVING SURGERY. SHE IS AFRAID TO TAKE MORPHINE BEFORE SURGERY.
--- NOTE | 2019-06-01 08:00 | NUR ---
ASSESSMENT AND DOCUMENTATION COMPLETED. PT PLEASANT AND COOPERATIVE, WORRIED ABOUT HAVING I&D DONE. ABCESS ON L LABIA-BUTTOCKS C/O BURNING MEDICATEd WITH TORADOL. CALL LIGHT WITHIN REACH. ANNA CORTEZ SPNR[facility]
--- NOTE | 2019-06-01 08:30 | NUR ---
PT RESTING IN BED. RESP-EASY AND REGULAR. STUDENT NURSE WITH PT TODAY. CALL LIGHT IN REACH. SEE SHIFT ASSESSMENT.
--- NOTE | 2019-06-01 09:00 | NUR ---
Associate Professor Of Pathology in to talk to patient. Patient states lives at home with friend. There are 5 steps in the home. Physician: anastacia [facility] [place] [facility] services: none Patient's level of ADLs: independent Patient has working utilities: all working DME: none Follow-up physician's appointment after d/c: will be made by hospitalist nurse director upon discharge Does patient want to access PORTAL?: no Discharge plan discussed with patient, she lives at home with friend, she is independent in adls and ambulation, she states she will return home when medically stable. she denies any home needs at this time, case management will follow. ANDREW QUINN
--- NOTE | 2019-06-01 09:06 | NUR ---
TORADOL EFFECTIVE PT DENIES ANY PAIN AT THIS TIME. ANNA CORTEZ SPNR[facility]
--- NOTE | 2019-06-01 10:29 | NUR ---
Dr. Martin notified of wound care recommendations.
--- NOTE | 2019-06-01 10:52 | NUR ---
PT SITTING IN BED VISITING WITH FAMILY AT THIS TIME. DENIES ANY PAIN AT THIS. CALL LIGHT WITHIN REACH. ANNA CORTEZ SPNR[facility]
--- NOTE | 2019-06-01 11:50 | NUR ---
PT TRANSPORTED TO SURGERY VIA BED WITH OR STAFF. STABLE NO VOICE COMPLAINTS. ANNA CORTEZ [facility]
--- NOTE | 2019-06-01 11:52 | NUR ---
ASSESSMENT AND DOCUMENTATION COMPLETED. PT SITTING IN BED VISITING WITH FAMILY. DENIES ANY PAIN AT THIS TIME. CALL LIGHT WITHIN REACH. [facility]TEZ [facility]
--- NOTE | 2019-06-01 13:01 | NUR ---
PT REMAINS OFF FLOOR IN SURGERY. REPORT GIVEN TO CHRIS. [facility] COR[facility]Z [facility]
--- NOTE | 2019-06-01 16:10 | NUR ---
PT RESTING IN BED. RESP-EASY AND REGULAR. PT C/O BUTTOCK/GROIN PAIN, RATES PAIN 6 ON PAIN SCALE 0-10. MEDICATED WITH NORCO PO PER PRN ORDER, SEE EMAR. [id number], SEE EMAR. CALL LIGHT IN REACH. SEE SHIFT ASSESSMENT.
--- NOTE | 2019-06-01 17:00 | NUR ---
RESTING IN BED WITH HOB ELEVATED. RESP-EASY AND REGULAR. MEDICATION HELPS PER PT. CALL LIGHT IN REACH.
--- NOTE | 2019-06-01 19:00 | NUR ---
BEDSIDE REPORT RECEIVED FROM TABATHA CARVAJAL. PATIENT ANXIOUS AND TEARFUL. DENIES WANTING TO BE PLACED ON HEART MONITOR AT THIS TIME. THIS NURSE EXPLAINED TO HER SHE WILL BE CHECKED ON FREQUENTLY. PATIENT STATES SHE JUST WANTS A NORCO AT BED TIME AND WILL BE OKAY THROUGHOUT THE NIGHT. PATIENT AGREEABLE TO 4AM VITAL SIGNS. PATIENTS WOUND LOOKED AT AND DRESSED. PATIENTS BED AND GOWN CHANGED AT THIS TIME WELL. PATIENT VOICES NO OTHER COMPLAINTS AT THIS TIME. RESPIRATIONS EASY, NON LABORED. CALL LIGHT WITIN REACH, BED IN LOWEST POSITION. WILL CONTINUE TO MONITOR.
--- NOTE | 2019-06-01 20:40 | NUR ---
PATIENT ASLEEP IN BED. WOKEN UP TO CHECK BLOOD SUGAR. PATIENT VOICES NO COMPLAINTS AT THIS TIME. RESPIRATIONS EASY, NON LABORED. NO SIGNS OF DISTRESS. VITALS WNL. BED IN LOWEST POSITION,CALL LIGHT WITHIN REACH, WILL CONTINUE TO MONITOR.
--- NOTE | 2019-06-01 22:36 | NUR ---
PATIENT MEDICATED WITH NORCO PER REQUEST FOR RONN AREA PAIN AND TO HELP REST. RATES PAIN 3/10. WILL CHECK EFFECTIVENESS.
[2019-06-02] VITALS (7 sets, daily range): BP systolic 94–112; BP diastolic 58–65
--- NOTE | 2019-06-02 | NUR ---
PATIENT SLEEPING NORCO EFFECTIVE. RESPIRATIONS EASY, NON LABORED.NO SIGNS OF DISTRESS. BED IN LOWEST POSITION, CALL LIGHT WITHIN REACH.WILL CONTINUE TO MONITOR.
--- NOTE | 2019-06-02 04:00 | NUR ---
PATIENT SLEEPING, NO SIGNS OF DISTRESS. PATIENT WOKEN UP TO GET 4AM VITALS. VOICES NO COMPLAINTS.VITALS WNL.NO SIGNS OF DISTRESS. WILL CONTINUE TO MONITOR.
--- NOTE | 2019-06-02 04:18 | NUR ---
PATIENT RIPPED OUT IV, NEW IV PLACED IN LEFT AC. THIS NURSE NOTICED PATIENT HAD MULTIPLE PILL BOTTLES IN PURSE. PATIENT ALLOWED THIS NURSE TO TAKE AND SEND TO PHARMACY. PATIENT HAS A EMPTY VICODIN PRESCRIPTION BOTTLE IN PURSE.
--- NOTE | 2019-06-02 04:54 | NUR ---
24 HR chart check completed.
--- NOTE | 2019-06-02 07:31 | NUR ---
MILES TUCKER [id number] Please refer to the physician's history and physical for past medical history, comorbid conditions, and allergies. Diagnosis: CELLULITIS OF PERINEUM SEPSIS Chacho Score: 19,LOW OR NO RISK WOUND DESCRIPTIONS: Wound Number: 1 Location of the wound: left medial aspect of upper thigh into labia Thickness: Full Size: 2.2cm x 0.7cm x 4.2cm Tunneling: none Undermining: none Sinus Tract: none Presence of Exudate: Serosanguineous Amount: moderate Color: Yellow, red Odor: None Periwound Skin Appearance: Erythema Wound edges: approximated Pain (associated with wound): very tender to touch Surface the patient is resting on: Isoflex SKIN PREVENTION RECOMMENDATION: 1. Pressure redistribution support surface as appropriate 2. Elevate heels 3. Remove boots/TEDS every shift and reapply 4. Head of bed 30 degrees as tolerated 5. Assess nutrition and hydration 6. Manage moisture 7. Avoid the use of containment devices while in bed 8. Use absorptive products on surfaces limit layers of linens on bed 9. Turn and reposition every 1-2 hours in bed and every 1 hour in chair as tolerated 10. Weight shifts every 15 minutes while up in chair 11. Offloading with pillows or device to keep heels elevated off bed 12. Monitor skin at least every shift 13. Inspect under medical devices twice a day WOUND TREATMENT RECOMMENDATIONS: SPOKE WITH VAUGHN DREW AND HE STATED TO HAVE THE PATIENT FOLLOW UP IN THE WOUND CARE CENTER UPON DISCHARGE. CLEANSE LEFT MEDIAL ASPECT OF UPPER THIGH INTO LABIA WITH NSS AND LIGHTLY PACK WITH MAXORB DAILY AND PRN FOR SOILING THEN COVER WITH OPTIFOAM GENTLE TO SECURE PACKING IN PLACE AND COVER WITH MESH PANTIES.
--- NOTE | 2019-06-02 09:00 | NUR ---
case management visits with patient, discussed with her again a discharge plan including a short term halfway vs home with home health, discussed with her how a person qualifies for skilled care and that her insurance will also have to approve the skilled stay, also discussed with her if her insurance declined the skilled stay that she would have to return home with home health, also educated her that visiting nurse would visit 3 days a week and help change her dressing but the other days she would have to have a family memeber help with the dressing, she stated she has family and she would have to have the right one help her, patient stated she would like her inforamtion faxed to [facility] as first choice and will wait to see if she is approved, case management /conservation planner will follow
--- NOTE | 2019-06-02 09:02 | NUR ---
RECHECKED PATIENTS BLOOD SUGAR PER PATIENT REQUEST AFTER HER BREAKFAST. BLOOD SUGAR 160. PATIENT HAS SCHEDULED INSULIN 40 UNITS FROM 0730. PATIENT STATED SHE DOES NOT WANT THE WHOLE 40 UNITS AND INSTEAD WANTS 10 UNITS.
--- NOTE | 2019-06-02 10:00 | NUR ---
TALKED WITH PATIENT ABOUT BEING ON THE HEART MONITOR. THE PATIENT STATED SHE WAS OKAY WITH NOT BEING ON IT AND THAT SHE FELT LIKE SHE DID NOT NEED TO BE ON IT RIGHT NOW.
--- NOTE | 2019-06-02 10:06 | NUR ---
Spoke with patient regarding wound care upon discharge and she stated that she is willing to go to a facility since she won't be able to care for area at home. Informed Marlin from case management that patient is requesting to go to a facility.
--- NOTE | 2019-06-02 10:38 | NUR ---
Patient requesting referral to [facility] for woundcare. Contacted facility and faxed referral.
--- NOTE | 2019-06-02 13:00 | NUR ---
PATIENT COMPLAINED OF BURNING DURING URINATION WHEN DR MENDES WAS IN THE ROOM. DR MENDES ORDERED THE PATIENT TO HAVE A URINE SENT.
[2019-06-02 17:59] LABS: BILIRUBIN NEGATIVE (NEGATIVE); BLOOD 3+ (NEGATIVE); CLARITY CLEAR (CLEAR); COLOR YELLOW (YELLOW); GLUCOSE NEGATIVE (NEGATIVE); KETONE NEGATIVE (NEGATIVE); LEUKO ESTERASE 2+ (NEGATIVE); NITRITE NEGATIVE (NEGATIVE)
[2019-06-02 18:01] LABS: BACTERIA TRACE; WBC 16-20 wbc/hpf (0-5)
[2019-06-03] VITALS: BP 85/41
--- NOTE | 2019-06-03 00:32 | NUR ---
DR. BRADLEY NOTIFIED OF PT'S BP OF 88/58 AND PT LETHARGIC. TO ORDER IVF.
[2019-06-03 00:33] VITALS: BP 88/58
[2019-06-03 02:00] VITALS: BP 98/60
--- NOTE | 2019-06-03 03:47 | NUR ---
Upon discharge recommend patient to follow up for wound care in outpatient setting continue current wound care orders at discharging facility.
[2019-06-03 04:00] VITALS: BP 110/70
[2019-06-03 08:00] VITALS: BP 112/76
--- NOTE | 2019-06-03 08:00 | NUR ---
VITAL SIGNS ARE STABLE AT THIS TIME. PATIENT IS RESTING IN BED AT THIS TIME. SHE IS EASILY AROUSABLE. A&OX3. PLEASANT AND COOPERATIVE. SPEECH IS NORMAL. HEART IS NORMAL. LUNG SOUNDS ARE CLEAR THROUGHOUT. ABDOMEN IS SOFT, NON TENDER AND NON DISTENDED. BSX4. PATIENT STATES THAT HER LAST BM WAS X2 DAYS AGO. SKIN IS PINK, WARM AND DRY. CAPILLARY REFILL IS LESS THAN 3 SECONDS AND NON TENTING. 20G IV IN THE RIGHT WRIST. THE IV IS INTACT AND PATENT. THERE IS NO SURROUNDING REDNESS OR WARMTH TO SITE. AN OPTIFOAM DRESSING IS INTACT TO THE LEFT MEDIAL ASPECT OF THE UPPER THIGH INTO THE LABIA. THERE IS NO DRAINAGE OR SURROUNDING REDNESS. PATIENT CONTINUES TO COMPLAIN OF DYSURIA. NO OTHER COMPLAINTS. JESSICA ANTHONYCC
--- NOTE | 2019-06-03 08:45 | NUR ---
Occupational therapy orders received and OT evaluation completed in full on floor five. Patient precautions include fall risk, IV line, decreased balance, right sided weakness, right eye blind, contact prec. Per OT jazmin, OT recommends a SNF to maximize patient's strength and independence for her return to home. If unable, patient would benefit from SN, OT, and PT. [place] complexity [place] mod, [id number]. Thank you for the referral. LACHELLE Pelaez/L
--- NOTE | 2019-06-03 09:00 | NUR ---
PATIENT IS UP IN CHAIR EATING BREAKFAST AT THIS TIME. FAMILY IS IN ROOM VISITING. PATIENT HAS NO COMPLAINTS AT THIS TIME. WILL CONTINUE TO MONITOR JESSICA ИВАН ROXANACC
--- NOTE | 2019-06-03 09:00 | NUR ---
case management visits with patient, discussed with her the possiblity of her not qualifing for long term criteria, educated her that her insurance has to look at all of the information including physical therapy notes and make the decision if she qualifies for skilled or not, educated her that if her insurance denied her skilled stay she would need to have someone help her do the dressing like the conversation that was held yesterday, REPLACED BY [facility] will see her at home, patient verbalized understanding
--- NOTE | 2019-06-03 09:30 | NUR ---
PHYSICAL THERAPY Ayanna completed full report to follow pt could benefit from further rehab prior to home/SNF pending progress however if goes home recomend Home Health PT/OT PT to work on transfers,abm,balance/safety,strengthening. Alisia Vee PT
--- NOTE | 2019-06-03 10:00 | NUR ---
THE PATIENTS WOUND DRESSING HAS BEEN CHANGED. THE VERÓNICA
--- NOTE | 2019-06-03 10:00 | NUR ---
THE PATIENTS DRESSING HAS BEEN CHANGED AT THIS TIME. THE PREVIOUS DRESSING HAS BEEN REMOVED. SITE WAS CLEANSED WITH NS. MAXORB WAS PLACED AND COVERED WITH OPTIFOAM SECURED WITH MESH UNDERWEAR. THE PATIENT TOLERATED THE DRESSING CHANGE WELL. PATIENTS WAS PRESENT IN THE ROOM AT TIME OF THE CHANGE AND HE WAS SHOWN ON HOW TO MANAGE THE DRESSING. JESSICA LESTER
--- NOTE | 2019-06-03 10:20 | NUR ---
DR MENDES IN TO SEE PATIENT. JESSICA OATES SPNRCC
--- NOTE | 2019-06-03 10:57 | NUR ---
Patient PT/OT evals faxed to [facility] for referral review. They are still undecided if patient will qualify for retirement. Waiting on review.
[2019-06-03] MEDS ORDERED: Bactroban Oint22 GM NAS (11:50)
[2019-06-03] MEDS ORDERED: HUMULIN R500 UNIT/1 SC (11:50)
[2019-06-03] MEDS ORDERED: SEPTDS PO (11:53)
[2019-06-03 12:00] VITALS: BP 116/60
--- NOTE | 2019-06-03 13:15 | NUR ---
Discharge instructions reviewed with patient/family. Patient receptive and verbalizes understanding. Follow-up care arranged. Written instructions given to patient/family. Hep lock removed. All belongings were with patient. She was taken by myself to the vehicle via wheelchair. Patient stable when leaving facility. Patients parents were with patient at time of discharge and will be taking her home. JESSICA OATES SPNRCC ROSE MARVIN
--- NOTE | 2019-06-08 16:51 | NUR ---
REFERRAL AND DISCHARGED INSTRUCTIONS FAXED TO [facility].
== END 2019-06-03 13:15 | disposition home or self-care (01) | DRG 854 ==
LOC: ED 20:33 → 4E 05-31 00:03 → EDHOLD 05-31 00:03 → 4E 05-31 00:27 → 5E 06-01 18:49
PROVIDERS: Physician Assistant; Student in an Organized Health Care Education/Training Program; Surgery; ADMIT Internal Medicine
PROC: 0D9Q0ZZ Drainage of Anus, Open Approach (ICD-10-PCS; principal; 2019-06-01)
DX: A41.9 Sepsis, unspecified organism (principal); L03.315 Cellulitis of perineum; E87.1 Hypo-osmolality and hyponatremia; E44.0 Moderate protein-calorie malnutrition; K61.0 Anal abscess; E11.65 Type 2 diabetes mellitus with hyperglycemia; E87.5 Hyperkalemia; G40.909 Epilepsy, unspecified, not intractable, without status epilepticus; E11.42 Type 2 diabetes mellitus with diabetic polyneuropathy; H54.61 Unqualified visual loss, right eye, normal vision left eye; I10 Essential (primary) hypertension; E89.0 Postprocedural hypothyroidism; E83.39 Other disorders of phosphorus metabolism; E87.6 Hypokalemia; B95.62 Methicillin resistant Staphylococcus aureus infection as the cause of diseases classified elsewhere; Z68.33 Body mass index [BMI] 33.0-33.9, adult; R81 Glycosuria; R82.4 Acetonuria; Z88.8 Allergy status to other drugs, medicaments and biological substances; Z79.4 Long term (current) use of insulin; Z79.899 Other long term (current) drug therapy; Z90.710 Acquired absence of both cervix and uterus; Z90.49 Acquired absence of other specified parts of digestive tract; Z86.14 Personal history of Methicillin resistant Staphylococcus aureus infection; Z82.3 Family history of stroke; Z83.3 Family history of diabetes mellitus; Z82.0 Family history of epilepsy and other diseases of the nervous system; Z82.61 Family history of arthritis; Z82.49 Family history of ischemic heart disease and other diseases of the circulatory system; Z79.82 Long term (current) use of aspirin; Z85.850 Personal history of malignant neoplasm of thyroid

== ENCOUNTER 2020-08-07 16:35 | Emergency (ER) | payer MEDICARE ==
[~2020-08-07] VITALS: Ht 165.1 cm; Wt 82.1 kg
[~2020-08-07 16:35] MED LIST changes: +Bactroban Oint22 GM NAS; +SEPTDS PO
[2020-08-07 17:44] LABS: BASO # 0.1 10*3/uL (0.0-0.1); BASO % 0.9 % (0.0-1.0); EOS # 0.1 10*3/uL (0.0-0.4); EOS % 1.9 % (1.0-4.0); LYMPH # 1.7 10*3/uL (1.3-4.4); LYMPH % 24.3 % (27.0-41.0); MEAN CORPUSCULAR HGB 28.8 pg (27.0-31.0); MEAN CORPUSCULAR HGB CONC 33.1 g/dl (33.0-37.0); MEAN PLATELET VOLUME 10.1 fl (9.6-12.3); MONO # 0.4 10*3/uL (0.1-1.0); MONO % 5.9 % (3.0-9.0); NEUT # 4.6 10*3/uL (2.3-7.9); PLATELET COUNT AUTOMATED 243 10*3/uL (130-400); RED BLOOD COUNT 4.83 10*6/uL (4.10-5.10); RED CELL DISTRI WIDTH 12.4 % (0-14.5)
[2020-08-07 18:00] LABS: ALBUMIN 3.5 gm/dl (3.1-4.5); ALKALINE PHOSPHATASE 78 U/L (45-117); BUN 21 mg/dl (7-24); CHLORIDE 105 mmol/L (98-107); CREATININE 0.84 mg/dL (0.55-1.02); POTASSIUM 3.9 mmol/L (3.5-5.1); SGOT/AST 5 IU/L (3-35); SGPT/ALT 18 U/L (12-78); SODIUM 135 mmol/L (136-145); TOTAL PROTEIN 7.2 gm/dL (6.4-8.2)
[2020-08-07 19:49] VITALS: BP 130/72
== END 2020-08-07 20:31 | disposition home or self-care (01) ==
LOC: ED 16:35
PROVIDERS: Student in an Organized Health Care Education/Training Program
DX: R56.9 Unspecified convulsions (principal); E11.65 Type 2 diabetes mellitus with hyperglycemia; R32 Unspecified urinary incontinence; Z91.048 Other nonmedicinal substance allergy status; Z88.8 Allergy status to other drugs, medicaments and biological substances; Z79.899 Other long term (current) drug therapy; Z79.4 Long term (current) use of insulin; Z79.2 Long term (current) use of antibiotics; Z79.82 Long term (current) use of aspirin; Z85.9 Personal history of malignant neoplasm, unspecified; Z98.890 Other specified postprocedural states; Z90.711 Acquired absence of uterus with remaining cervical stump; Z90.49 Acquired absence of other specified parts of digestive tract; Z90.89 Acquired absence of other organs; Z98.2 Presence of cerebrospinal fluid drainage device

== ENCOUNTER 2020-12-27 14:49 | Emergency (ER) | payer MEDICARE ==
[~2020-12-27] VITALS: Wt 85.7 kg
[2020-12-27 16:01] LABS: BASO # 0.1 10*3/uL (0.0-0.1); BASO % 0.5 % (0.0-1.0); EOS # 0.2 10*3/uL (0.0-0.4); EOS % 1.8 % (1.0-4.0); HEMATOCRIT 39.5 % (37.0-47.0); LYMPH # 1.9 10*3/uL (1.3-4.4); LYMPH % 16.8 % (27.0-41.0); MEAN CELL VOLUME 83.2 fl (81.0-99.0); MEAN CORPUSCULAR HGB 29.1 pg (27.0-31.0); MEAN CORPUSCULAR HGB CONC 34.9 g/dl (33.0-37.0); MEAN PLATELET VOLUME 10.2 fl (9.6-12.3); MONO # 0.7 10*3/uL (0.1-1.0); MONO % 6.4 % (3.0-9.0); NEUT # 8.3 10*3/uL (2.3-7.9); PLATELET COUNT AUTOMATED 297 10*3/uL (130-400); RED BLOOD COUNT 4.75 10*6/uL (4.10-5.10); RED CELL DISTRI WIDTH 12.4 % (0-14.5); WHITE BLOOD COUNT 11.2 10*3/uL (4.8-10.8)
[2020-12-27 16:09] LABS: BILIRUBIN Negative (Negative); BLOOD 3+ (Negative); CLARITY Turbid (Clear); COLOR Yellow (Yellow); GLUCOSE 3+ (Negative); KETONE 1+ (Negative); LEUKO ESTERASE 2+ (Negative); NITRITE Positive (Negative); SPECIFIC GRAVITY >= 1.030 (1.001-1.030); UROBILINOGEN 0.2 E.U./dl (0.0-1.0)
[2020-12-27 16:24] LABS: BACTERIA 2+; RBC TNTC rbc/hpf (0-2); WBC TNTC wbc/hpf (0-5)
[2020-12-27 16:34] LABS: ALBUMIN 3.5 gm/dl (3.1-4.5); ALKALINE PHOSPHATASE 96 U/L (45-117); BUN 16 mg/dl (7-24); CHLORIDE 100 mmol/L (98-107); POTASSIUM 4.2 mmol/L (3.5-5.1); SGOT/AST 9 IU/L (3-35); SGPT/ALT 18 U/L (12-78); SODIUM 134 mmol/L (136-145); TOTAL PROTEIN 7.5 gm/dL (6.4-8.2)
[2020-12-27 19:42] VITALS: BP 131/77
[2020-12-27] MEDS ORDERED: CEFUROXIME AXE500 MG PO (21:09)
[2020-12-27] MEDS ORDERED: PYRIDIUM200 M1 PO (21:16)
== END 2020-12-27 22:01 | disposition home or self-care (01) ==
LOC: ED 14:49
PROVIDERS: Physician Assistant
DX: N39.0 Urinary tract infection, site not specified (principal); E11.9 Type 2 diabetes mellitus without complications; Z88.8 Allergy status to other drugs, medicaments and biological substances; Z79.899 Other long term (current) drug therapy; Z79.82 Long term (current) use of aspirin

== ENCOUNTER 2021-02-22 18:17 | Emergency (ER) | payer MEDICARE ==
[~2021-02-22] VITALS: Wt 82.1 kg
[2021-02-22 18:53] VITALS: BP 133/85
[2021-02-22] MEDS ORDERED: CYCLOBENZAPRINE5 M3 PO (21:30)
== END 2021-02-22 21:42 | disposition home or self-care (01) ==
LOC: ED 18:17
DX: S16.1XXA Strain of muscle, fascia and tendon at neck level, initial encounter (principal); M54.50 Low back pain, unspecified; M25.511 Pain in right shoulder; M25.512 Pain in left shoulder; G89.29 Other chronic pain; Z91.048 Other nonmedicinal substance allergy status; Z88.8 Allergy status to other drugs, medicaments and biological substances; Z79.2 Long term (current) use of antibiotics; Z79.899 Other long term (current) drug therapy; Z79.82 Long term (current) use of aspirin; Z90.711 Acquired absence of uterus with remaining cervical stump; Z98.890 Other specified postprocedural states; Z90.89 Acquired absence of other organs; Z90.49 Acquired absence of other specified parts of digestive tract; X58.XXXA Exposure to other specified factors, initial encounter; Y93.89 Activity, other specified; Y92.89 Other specified places as the place of occurrence of the external cause; Y99.8 Other external cause status

== ENCOUNTER → 2021-04-07 | Outpatient (CLI) | payer MEDICARE ==
[~2021-04-07] MED LIST changes: +CYCLOBENZAPRINE5 M3 PO
== END | disposition home or self-care (01) ==
LOC: ORTHO 08:26
PROVIDERS: ATTEND Orthopaedic Surgery
DX: M25.561 Pain in right knee (principal)

== ENCOUNTER 2021-12-17 20:52 | Emergency (ER) | payer MEDICARE ==
[2021-12-17 20:56] VITALS: BP 152/76
[2021-12-17] MEDS ORDERED: NAPROXEN250 MG PO (22:06)
== END 2021-12-17 22:25 | disposition home or self-care (01) ==
LOC: ED 20:52
DX: M79.672 Pain in left foot (principal); Z91.048 Other nonmedicinal substance allergy status; Z88.8 Allergy status to other drugs, medicaments and biological substances; Z79.2 Long term (current) use of antibiotics; Z79.899 Other long term (current) drug therapy; Z79.4 Long term (current) use of insulin; Z79.82 Long term (current) use of aspirin; Z98.890 Other specified postprocedural states; Z90.710 Acquired absence of both cervix and uterus; Z90.89 Acquired absence of other organs; Z90.49 Acquired absence of other specified parts of digestive tract

== ENCOUNTER → 2022-02-16 | Outpatient (CLI) | payer OTHER ==
[~2022-02-16] MED LIST changes: +NAPROXEN250 MG PO
[2022-02-16 13:39] LABS: BASO # 0.1 10*3/uL (0.0-0.1); BASO % 0.9 % (0.0-1.0); EOS # 0.4 10*3/uL (0.0-0.4); EOS % 4.5 % (1.0-4.0); HEMATOCRIT 42.3 % (37.0-47.0); LYMPH # 2.6 10*3/uL (1.3-4.4); LYMPH % 34.3 % (27.0-41.0); MEAN CELL VOLUME 84.3 fl (81.0-99.0); MEAN CORPUSCULAR HGB 29.5 pg (27.0-31.0); MEAN PLATELET VOLUME 10.1 fl (9.6-12.3); MONO # 0.5 10*3/uL (0.1-1.0); MONO % 5.8 % (3.0-9.0); NEUT # 4.1 10*3/uL (2.3-7.9); NEUT % 53.7 % (47.0-73.0); PLATELET COUNT AUTOMATED 272 10*3/uL (130-400); RED BLOOD COUNT 5.02 10*6/uL (4.10-5.10); RED CELL DISTRI WIDTH 12.5 % (0-14.5); WHITE BLOOD COUNT 7.7 10*3/uL (4.8-10.8)
[2022-02-16 13:55] LABS: ALKALINE PHOSPHATASE 77 U/L (45-117); BUN 17 mg/dl (7-24); CHLORIDE 103 mmol/L (98-107); CREATININE 0.94 mg/dL (0.55-1.02); POTASSIUM 4.3 mmol/L (3.5-5.1); SGOT/AST 4 IU/L (3-35); SODIUM 134 mmol/L (136-145); TOTAL PROTEIN 7.4 gm/dL (6.4-8.2)
[2022-02-16 13:56] LABS: SGPT/ALT 18 U/L (12-78)
== END | disposition home or self-care (01) ==
LOC: LAB 12:53
PROVIDERS: ATTEND Podiatrist Foot & Ankle Surgery
DX: E11.40 Type 2 diabetes mellitus with diabetic neuropathy, unspecified (principal); L03.032 Cellulitis of left toe

== ENCOUNTER → 2022-09-04 | Outpatient (CLI) | payer OTHER ==
[2022-09-04 11:30] LABS: BUN 18 mg/dl (9-23); CHLORIDE 105 mmol/L (98-107); POTASSIUM 4.3 mmol/L (3.4-5.1)
== END ==
LOC: LAB 00:31 → CARD 00:31
PROVIDERS: ATTEND Internal Medicine Cardiovascular Disease
DX: R07.9 Chest pain, unspecified (principal)

== ENCOUNTER 2022-11-28 16:37 | Inpatient (IN) | payer OTHER ==
[~2022-11-28] VITALS: Ht 165.1 cm; Wt 95.8 kg
[2022-11-28 16:51] VITALS: BP 121/65
[2022-11-28 17:53] LABS: BASO # 0.1 10*3/uL (0.0-0.1); BASO % 0.9 % (0.0-1.0); EOS # 0.4 10*3/uL (0.0-0.4); EOS % 4.7 % (1.0-4.0); HEMATOCRIT 36.5 % (37.0-47.0); LYMPH % 39.9 % (27.0-41.0); MEAN CELL VOLUME 86.1 fl (81.0-99.0); MEAN CORPUSCULAR HGB 29.2 pg (27.0-31.0); MEAN PLATELET VOLUME 9.7 fl (9.6-12.3); MONO # 0.5 10*3/uL (0.1-1.0); MONO % 6.4 % (3.0-9.0); NEUT # 3.6 10*3/uL (2.3-7.9); NEUT % 47.7 % (47.0-73.0); PLATELET COUNT AUTOMATED 275 10*3/uL (130-400); RED BLOOD COUNT 4.24 10*6/uL (4.10-5.10); RED CELL DISTRI WIDTH 13.1 % (0-14.5); WHITE BLOOD COUNT 7.5 10*3/uL (4.8-10.8)
[2022-11-28 18:05] LABS: ACT PARTIAL THROMBO TIME 25.6 SECONDS (20.0-32.1)
[2022-11-28 18:14] LABS: ALKALINE PHOSPHATASE 65 U/L (46-116); BUN 18 mg/dl (9-23); CHLORIDE 105 mmol/L (98-107); LIPASE 61 U/L (12-53); POTASSIUM 3.9 mmol/L (3.4-5.1); SGPT/ALT 15 U/L (10-49)
[2022-11-28] MEDS ORDERED: HUMALOG100 UNIT/1 SC (18:18)
[2022-11-28 19:40] VITALS: BP 140/83
[2022-11-28 19:48] VITALS: BP 128/75
[2022-11-28] MEDS ORDERED: OZEMPIC0.25 MG/03 SQ (20:11)
[2022-11-28] MEDS ORDERED: ALPRAZOLAM0.25 M2 PO (20:12)
[2022-11-28] MEDS ORDERED: HYDROCODONE-AC1 EAC2 PO (20:12)
[2022-11-28] MEDS ORDERED: ALDACTONE25 MG PO (20:13)
[2022-11-28] MEDS ORDERED: BUMETANIDE2 MG PO (20:14)
[2022-11-28] MEDS ORDERED: Motrin,Rufen800 MG PO (20:16)
[2022-11-29] VITALS: BP 130/68
[2022-11-29 07:00] LABS: ALKALINE PHOSPHATASE 60 U/L (46-116); BUN 13 mg/dl (9-23); CHLORIDE 108 mmol/L (98-107); CHOLESTEROL 141 mg/dL (<200); FREE T4 1.09 ng/dl (0.89-1.76); LDL CHOLESTEROL 84 mg/dL (9-159); POTASSIUM 3.8 mmol/L (3.4-5.1); SGPT/ALT 15 U/L (10-49); TOTAL PROTEIN 6.5 gm/dL (6.0-8.0); TRIGLYCERIDES 122 mg/dl (<150)
[2022-11-29 07:55] LABS: BASO % 0.5 % (0.0-1.0); EOS # 0.3 10*3/uL (0.0-0.4); EOS % 6.1 % (1.0-4.0); HEMATOCRIT 36.3 % (37.0-47.0); LYMPH # 1.5 10*3/uL (1.3-4.4); LYMPH % 27.3 % (27.0-41.0); MEAN CELL VOLUME 86.2 fl (81.0-99.0); MEAN CORPUSCULAR HGB CONC 33.6 g/dl (33.0-37.0); MEAN PLATELET VOLUME 9.8 fl (9.6-12.3); MONO # 0.4 10*3/uL (0.1-1.0); MONO % 6.8 % (3.0-9.0); NEUT # 3.3 10*3/uL (2.3-7.9); NEUT % 58.9 % (47.0-73.0); PLATELET COUNT AUTOMATED 256 10*3/uL (130-400); RED BLOOD COUNT 4.21 10*6/uL (4.10-5.10); WHITE BLOOD COUNT 5.6 10*3/uL (4.8-10.8)
[2022-11-29 08:00] VITALS: BP 138/79
[2022-11-29 12:00] VITALS: BP 136/74
[2022-11-29 16:00] VITALS: BP 102/68
[2022-11-29 20:00] VITALS: BP 129/67
[2022-11-30] VITALS: BP 115/64
[2022-11-30 06:19] LABS: BASO % 0.7 % (0.0-1.0); EOS # 0.4 10*3/uL (0.0-0.4); LYMPH # 2.2 10*3/uL (1.3-4.4); LYMPH % 35.5 % (27.0-41.0); MEAN CELL VOLUME 87.7 fl (81.0-99.0); MEAN CORPUSCULAR HGB 29.1 pg (27.0-31.0); MEAN CORPUSCULAR HGB CONC 33.1 g/dl (33.0-37.0); MEAN PLATELET VOLUME 9.7 fl (9.6-12.3); MONO # 0.5 10*3/uL (0.1-1.0); MONO % 7.7 % (3.0-9.0); NEUT % 48.8 % (47.0-73.0); PLATELET COUNT AUTOMATED 240 10*3/uL (130-400); RED BLOOD COUNT 3.99 10*6/uL (4.10-5.10); WHITE BLOOD COUNT 6.1 10*3/uL (4.8-10.8)
[2022-11-30 06:53] LABS: BUN 11 mg/dl (9-23); CHLORIDE 104 mmol/L (98-107); POTASSIUM 3.9 mmol/L (3.4-5.1)
[2022-11-30 08:00] VITALS: BP 118/78
[2022-11-30] MEDS ORDERED: DOXYCYCLINE HY100 M3 PO ×2 (11:54)
[2022-11-30 12:00] VITALS: BP 120/75
== END 2022-11-30 14:35 | disposition home or self-care (01) | DRG 603 ==
LOC: ED 16:37 → 5E 17:44 → EDHOLD 17:44 → 5E 19:02
PROVIDERS: Emergency Medicine; Internal Medicine; ADMIT Internal Medicine; ATTEND Internal Medicine
DX: L03.115 Cellulitis of right lower limb (principal); E11.621 Type 2 diabetes mellitus with foot ulcer; E11.40 Type 2 diabetes mellitus with diabetic neuropathy, unspecified; L97.519 Non-pressure chronic ulcer of other part of right foot with unspecified severity; I45.10 Unspecified right bundle-branch block; E89.0 Postprocedural hypothyroidism; H54.61 Unqualified visual loss, right eye, normal vision left eye; I10 Essential (primary) hypertension; G40.909 Epilepsy, unspecified, not intractable, without status epilepticus; E66.9 Obesity, unspecified; E78.5 Hyperlipidemia, unspecified; G93.2 Benign intracranial hypertension; E11.49 Type 2 diabetes mellitus with other diabetic neurological complication; E11.65 Type 2 diabetes mellitus with hyperglycemia; Z88.8 Allergy status to other drugs, medicaments and biological substances; Z90.710 Acquired absence of both cervix and uterus; Z83.3 Family history of diabetes mellitus; Z82.49 Family history of ischemic heart disease and other diseases of the circulatory system; Z82.61 Family history of arthritis; Z85.850 Personal history of malignant neoplasm of thyroid; Z68.35 Body mass index [BMI] 35.0-35.9, adult

== ENCOUNTER → 2022-12-03 | Outpatient (CLI) | payer OTHER ==
[~2022-12-03] MED LIST changes: +ALDACTONE25 MG PO; +ALPRAZOLAM0.25 M2 PO; +BUMETANIDE2 MG PO; +DOXYCYCLINE HY100 M3 PO; +HUMALOG100 UNIT/1 SC; +HYDROCODONE-AC1 EAC2 PO; +OZEMPIC0.25 MG/03 SQ
== END | disposition home or self-care (01) ==
LOC: WOUNDCARE 02:03
PROVIDERS: ATTEND Podiatrist Foot & Ankle Surgery
DX: E11.621 Type 2 diabetes mellitus with foot ulcer (principal); L97.512 Non-pressure chronic ulcer of other part of right foot with fat layer exposed; L84 Corns and callosities; R60.0 Localized edema; E11.40 Type 2 diabetes mellitus with diabetic neuropathy, unspecified; G40.909 Epilepsy, unspecified, not intractable, without status epilepticus; E78.5 Hyperlipidemia, unspecified; H54.61 Unqualified visual loss, right eye, normal vision left eye; I87.2 Venous insufficiency (chronic) (peripheral); Z90.710 Acquired absence of both cervix and uterus; Z90.49 Acquired absence of other specified parts of digestive tract; Z79.82 Long term (current) use of aspirin

== ENCOUNTER 2022-12-07 22:11 | Emergency (ER) | payer OTHER ==
[~2022-12-07] VITALS: Ht 165.1 cm; Wt 90.3 kg
[2022-12-07 23:23] LABS: BASO # 0.1 10*3/uL (0.0-0.1); BASO % 0.8 % (0.0-1.0); EOS # 0.4 10*3/uL (0.0-0.4); EOS % 4.5 % (1.0-4.0); HEMATOCRIT 37.8 % (37.0-47.0); LYMPH # 3.8 10*3/uL (1.3-4.4); LYMPH % 42.7 % (27.0-41.0); MEAN CELL VOLUME 85.7 fl (81.0-99.0); MEAN CORPUSCULAR HGB CONC 33.9 g/dl (33.0-37.0); MEAN PLATELET VOLUME 9.7 fl (9.6-12.3); MONO # 0.5 10*3/uL (0.1-1.0); MONO % 5.8 % (3.0-9.0); NEUT % 45.7 % (47.0-73.0); PLATELET COUNT AUTOMATED 268 10*3/uL (130-400); RED BLOOD COUNT 4.41 10*6/uL (4.10-5.10); WHITE BLOOD COUNT 8.8 10*3/uL (4.8-10.8)
[2022-12-07 23:52] LABS: ALKALINE PHOSPHATASE 62 U/L (46-116); BUN 19 mg/dl (9-23); CHLORIDE 106 mmol/L (98-107); SGPT/ALT 19 U/L (10-49); TOTAL PROTEIN 7.2 gm/dL (6.0-8.0)
[2022-12-08 02:51] VITALS: BP 108/72
[2022-12-08] MEDS ORDERED: CLINDAMYCIN HC300 MG PO (03:15)
== END 2022-12-08 03:40 | disposition home or self-care (01) ==
LOC: ED 22:11
PROVIDERS: Internal Medicine
DX: E11.621 Type 2 diabetes mellitus with foot ulcer (principal); L97.529 Non-pressure chronic ulcer of other part of left foot with unspecified severity; E11.22 Type 2 diabetes mellitus with diabetic chronic kidney disease; I12.9 Hypertensive chronic kidney disease with stage 1 through stage 4 chronic kidney disease, or unspecified chronic kidney disease; N18.31 Chronic kidney disease, stage 3a; Z88.8 Allergy status to other drugs, medicaments and biological substances; Z90.49 Acquired absence of other specified parts of digestive tract; Z90.89 Acquired absence of other organs; Z98.890 Other specified postprocedural states; Z90.710 Acquired absence of both cervix and uterus

== ENCOUNTER → 2022-12-10 | Outpatient (CLI) | payer OTHER ==
[~2022-12-10] MED LIST changes: +CLINDAMYCIN HC300 MG PO
== END | disposition home or self-care (01) ==
LOC: WOUNDCARE 02:16
PROVIDERS: ATTEND Nurse Practitioner Primary Care
DX: E11.621 Type 2 diabetes mellitus with foot ulcer (principal); L97.512 Non-pressure chronic ulcer of other part of right foot with fat layer exposed; I87.2 Venous insufficiency (chronic) (peripheral); R60.0 Localized edema; E11.22 Type 2 diabetes mellitus with diabetic chronic kidney disease; N18.9 Chronic kidney disease, unspecified; A49.01 Methicillin susceptible Staphylococcus aureus infection, unspecified site; E11.40 Type 2 diabetes mellitus with diabetic neuropathy, unspecified; E78.5 Hyperlipidemia, unspecified; G40.909 Epilepsy, unspecified, not intractable, without status epilepticus; Z90.710 Acquired absence of both cervix and uterus; Z90.49 Acquired absence of other specified parts of digestive tract

== ENCOUNTER → 2022-12-17 | Outpatient (CLI) | payer OTHER | END | disposition home or self-care (01) | LOC: WOUNDCARE 02:41 | PROVIDERS: ATTEND Nurse Practitioner Family | DX: E11.621 Type 2 diabetes mellitus with foot ulcer (principal); L97.512 Non-pressure chronic ulcer of other part of right foot with fat layer exposed; I87.2 Venous insufficiency (chronic) (peripheral); R60.0 Localized edema; L84 Corns and callosities; E11.22 Type 2 diabetes mellitus with diabetic chronic kidney disease; N18.9 Chronic kidney disease, unspecified; A49.01 Methicillin susceptible Staphylococcus aureus infection, unspecified site; E11.40 Type 2 diabetes mellitus with diabetic neuropathy, unspecified; E78.5 Hyperlipidemia, unspecified; G40.909 Epilepsy, unspecified, not intractable, without status epilepticus; H54.61 Unqualified visual loss, right eye, normal vision left eye; Z90.710 Acquired absence of both cervix and uterus; Z90.49 Acquired absence of other specified parts of digestive tract ==

== ENCOUNTER → 2022-12-24 | Outpatient (CLI) | payer OTHER | END | disposition home or self-care (01) | LOC: WOUNDCARE 01:31 | PROVIDERS: ATTEND Nurse Practitioner Family | DX: E11.621 Type 2 diabetes mellitus with foot ulcer (principal); L97.512 Non-pressure chronic ulcer of other part of right foot with fat layer exposed; L84 Corns and callosities; R60.0 Localized edema; A49.01 Methicillin susceptible Staphylococcus aureus infection, unspecified site; E11.40 Type 2 diabetes mellitus with diabetic neuropathy, unspecified; E11.22 Type 2 diabetes mellitus with diabetic chronic kidney disease; N18.9 Chronic kidney disease, unspecified; E78.5 Hyperlipidemia, unspecified; I87.2 Venous insufficiency (chronic) (peripheral); G40.909 Epilepsy, unspecified, not intractable, without status epilepticus; H54.61 Unqualified visual loss, right eye, normal vision left eye; Z90.710 Acquired absence of both cervix and uterus; Z90.49 Acquired absence of other specified parts of digestive tract ==

== ENCOUNTER → 2023-01-04 | Outpatient (CLI) | payer OTHER | END | disposition home or self-care (01) | LOC: WOUNDCARE 01:36 | PROVIDERS: ATTEND Nurse Practitioner Family | DX: E11.621 Type 2 diabetes mellitus with foot ulcer (principal); L97.512 Non-pressure chronic ulcer of other part of right foot with fat layer exposed; L97.521 Non-pressure chronic ulcer of other part of left foot limited to breakdown of skin; E11.40 Type 2 diabetes mellitus with diabetic neuropathy, unspecified; E11.22 Type 2 diabetes mellitus with diabetic chronic kidney disease; N18.9 Chronic kidney disease, unspecified; I87.2 Venous insufficiency (chronic) (peripheral); R60.0 Localized edema; A49.01 Methicillin susceptible Staphylococcus aureus infection, unspecified site; E78.5 Hyperlipidemia, unspecified; H54.61 Unqualified visual loss, right eye, normal vision left eye; G40.909 Epilepsy, unspecified, not intractable, without status epilepticus; Z90.710 Acquired absence of both cervix and uterus; Z90.49 Acquired absence of other specified parts of digestive tract ==

== ENCOUNTER → 2023-01-15 | Outpatient (CLI) | payer OTHER | END | disposition home or self-care (01) | LOC: WOUNDCARE 00:59 | PROVIDERS: ATTEND Nurse Practitioner Family | DX: E11.621 Type 2 diabetes mellitus with foot ulcer (principal); L97.512 Non-pressure chronic ulcer of other part of right foot with fat layer exposed; L84 Corns and callosities; I87.2 Venous insufficiency (chronic) (peripheral); R60.0 Localized edema; A49.01 Methicillin susceptible Staphylococcus aureus infection, unspecified site; E11.40 Type 2 diabetes mellitus with diabetic neuropathy, unspecified; E78.5 Hyperlipidemia, unspecified; G40.909 Epilepsy, unspecified, not intractable, without status epilepticus; H54.61 Unqualified visual loss, right eye, normal vision left eye; Z90.710 Acquired absence of both cervix and uterus; Z90.49 Acquired absence of other specified parts of digestive tract ==

== ENCOUNTER → 2023-01-25 | Outpatient (CLI) | payer MEDICARE ==
[2023-01-25 10:16] LABS: BASO # 0.1 10*3/uL (0.0-0.1); BASO % 0.9 % (0.0-1.0); EOS # 0.4 10*3/uL (0.0-0.4); EOS % 5.1 % (1.0-4.0); HEMATOCRIT 42.8 % (37.0-47.0); LYMPH # 2.7 10*3/uL (1.3-4.4); LYMPH % 33.4 % (27.0-41.0); MEAN CELL VOLUME 88.2 fl (81.0-99.0); MEAN CORPUSCULAR HGB 28.9 pg (27.0-31.0); MEAN CORPUSCULAR HGB CONC 32.7 g/dl (33.0-37.0); MEAN PLATELET VOLUME 9.7 fl (9.6-12.3); MONO # 0.4 10*3/uL (0.1-1.0); MONO % 5.4 % (3.0-9.0); NEUT # 4.4 10*3/uL (2.3-7.9); NEUT % 54.6 % (47.0-73.0); PLATELET COUNT AUTOMATED 292 10*3/uL (130-400); RED BLOOD COUNT 4.85 10*6/uL (4.10-5.10); RED CELL DISTRI WIDTH 12.7 % (0-14.5); WHITE BLOOD COUNT 8.1 10*3/uL (4.8-10.8)
[2023-01-25 11:15] LABS: ALKALINE PHOSPHATASE 76 U/L (46-116); BUN 16 mg/dl (9-23); CHLORIDE 108 mmol/L (98-107); POTASSIUM 4.5 mmol/L (3.4-5.1); SGPT/ALT 16 U/L (10-49); TOTAL PROTEIN 7.8 gm/dL (6.0-8.0); VITAMIN D, 25-HYDROXY 34.6 ng/mL (30-100)
== END | disposition home or self-care (01) ==
LOC: LAB 01:22 → WOUNDCARE 01:22
PROVIDERS: ATTEND Nurse Practitioner Family
DX: E11.22 Type 2 diabetes mellitus with diabetic chronic kidney disease (principal); E55.9 Vitamin D deficiency, unspecified; R53.83 Other fatigue; N18.9 Chronic kidney disease, unspecified; R60.0 Localized edema; E11.621 Type 2 diabetes mellitus with foot ulcer

== ENCOUNTER → 2023-02-08 | Outpatient (CLI) | payer OTHER | LOC: WOUNDCARE 01-24 00:37 | PROVIDERS: ATTEND Nurse Practitioner Family | DX: E11.621 Type 2 diabetes mellitus with foot ulcer (principal); L97.512 Non-pressure chronic ulcer of other part of right foot with fat layer exposed; I87.2 Venous insufficiency (chronic) (peripheral); A49.01 Methicillin susceptible Staphylococcus aureus infection, unspecified site; R60.0 Localized edema; E11.40 Type 2 diabetes mellitus with diabetic neuropathy, unspecified; E11.22 Type 2 diabetes mellitus with diabetic chronic kidney disease; N18.9 Chronic kidney disease, unspecified; G40.909 Epilepsy, unspecified, not intractable, without status epilepticus; E78.5 Hyperlipidemia, unspecified; Z90.710 Acquired absence of both cervix and uterus; Z90.49 Acquired absence of other specified parts of digestive tract ==

== ENCOUNTER 2023-03-06 18:57 | Emergency (ER) | payer OTHER ==
[~2023-03-06] VITALS: Ht 165.1 cm; Wt 91.2 kg
[2023-03-06 19:59] LABS: BASO # 0.1 10*3/uL (0.0-0.1); BASO % 0.8 % (0.0-1.0); EOS # 0.4 10*3/uL (0.0-0.4); EOS % 4.8 % (1.0-4.0); HEMATOCRIT 40.1 % (37.0-47.0); LYMPH % 32.7 % (27.0-41.0); MEAN CELL VOLUME 85.5 fl (81.0-99.0); MEAN CORPUSCULAR HGB 29.2 pg (27.0-31.0); MEAN CORPUSCULAR HGB CONC 34.2 g/dl (33.0-37.0); MEAN PLATELET VOLUME 9.9 fl (9.6-12.3); MONO # 0.5 10*3/uL (0.1-1.0); PLATELET COUNT AUTOMATED 254 10*3/uL (130-400); RED BLOOD COUNT 4.69 10*6/uL (4.10-5.10); RED CELL DISTRI WIDTH 12.7 % (0-14.5); WHITE BLOOD COUNT 9.1 10*3/uL (4.8-10.8)
[2023-03-06 20:30] LABS: BUN 18 mg/dl (9-23); CHLORIDE 105 mmol/L (98-107); POTASSIUM 3.8 mmol/L (3.4-5.1)
[2023-03-06 22:43] LABS: BILIRUBIN Negative (Negative); BLOOD Negative (Negative); CLARITY Clear (Clear); COLOR Yellow (Yellow); GLUCOSE Negative (Negative); KETONE Negative (Negative); LEUKO ESTERASE Negative (Negative); NITRITE Negative (Negative); SPECIFIC GRAVITY 1.025 (1.001-1.030)
[2023-03-06 23:00] LABS: MUCOUS 1+; RBC 0-2 rbc/hpf (0-2)
[2023-03-06] MEDS ORDERED: NAPROXEN250 MG PO (23:06)
[2023-03-06 23:07] VITALS: BP 105/64
== END 2023-03-06 23:19 | disposition home or self-care (01) ==
LOC: ED 18:57
PROVIDERS: Internal Medicine
DX: S20.211A Contusion of right front wall of thorax, initial encounter (principal); S00.93XA Contusion of unspecified part of head, initial encounter; R11.2 Nausea with vomiting, unspecified; I95.9 Hypotension, unspecified; R55 Syncope and collapse; R51.9 Headache, unspecified; M54.2 Cervicalgia; R07.81 Pleurodynia; E11.9 Type 2 diabetes mellitus without complications; Z91.048 Other nonmedicinal substance allergy status; Z88.8 Allergy status to other drugs, medicaments and biological substances; Z79.2 Long term (current) use of antibiotics; Z79.899 Other long term (current) drug therapy; Z79.4 Long term (current) use of insulin; Z79.82 Long term (current) use of aspirin; Z98.890 Other specified postprocedural states; Z90.711 Acquired absence of uterus with remaining cervical stump; Z90.49 Acquired absence of other specified parts of digestive tract; Z90.89 Acquired absence of other organs; W18.39XA Other fall on same level, initial encounter; Y93.89 Activity, other specified; Y92.091 Bathroom in other non-institutional residence as the place of occurrence of the external cause; Y99.8 Other external cause status

== ENCOUNTER 2023-06-03 21:53 | Emergency (ER) | payer OTHER ==
[~2023-06-03] VITALS: Ht 165.1 cm; Wt 86.6 kg
[2023-06-03 22:52] LABS: BASO # 0.1 10*3/uL (0.0-0.1); BASO % 0.6 % (0.0-1.0); EOS # 0.3 10*3/uL (0.0-0.4); EOS % 2.7 % (1.0-4.0); HEMATOCRIT 38.1 % (37.0-47.0); LYMPH # 2.4 10*3/uL (1.3-4.4); LYMPH % 23.6 % (27.0-41.0); MEAN CELL VOLUME 87.6 fl (81.0-99.0); MEAN CORPUSCULAR HGB 28.5 pg (27.0-31.0); MEAN CORPUSCULAR HGB CONC 32.5 g/dl (33.0-37.0); MEAN PLATELET VOLUME 10.1 fl (9.6-12.3); MONO # 0.7 10*3/uL (0.1-1.0); MONO % 6.9 % (3.0-9.0); NEUT # 6.7 10*3/uL (2.3-7.9); NEUT % 65.8 % (47.0-73.0); PLATELET COUNT AUTOMATED 249 10*3/uL (130-400); RED BLOOD COUNT 4.35 10*6/uL (4.10-5.10); RED CELL DISTRI WIDTH 12.8 % (0-14.5); WHITE BLOOD COUNT 10.2 10*3/uL (4.8-10.8)
[2023-06-03 23:14] LABS: ALKALINE PHOSPHATASE 67 U/L (46-116); BUN 24 mg/dl (9-23); CHLORIDE 106 mmol/L (98-107); LIPASE 51 U/L (12-53); POTASSIUM 3.4 mmol/L (3.4-5.1); SGPT/ALT 13 U/L (5-49)
[2023-06-04 01:46] VITALS: BP 106/55
[2023-06-04] MEDS ORDERED: REGLAN10 M1 PO (01:52)
== END 2023-06-04 01:54 | disposition home or self-care (01) ==
LOC: ED 21:53
PROVIDERS: Internal Medicine
DX: E11.649 Type 2 diabetes mellitus with hypoglycemia without coma (principal); R07.89 Other chest pain; R51.9 Headache, unspecified; I10 Essential (primary) hypertension; Z88.8 Allergy status to other drugs, medicaments and biological substances; Z98.890 Other specified postprocedural states; Z90.710 Acquired absence of both cervix and uterus; Z90.49 Acquired absence of other specified parts of digestive tract; Z90.89 Acquired absence of other organs

== ENCOUNTER 2023-06-14 17:20 | Emergency (ER) | payer OTHER ==
[~2023-06-14] VITALS: Ht 165.1 cm; Wt 89.4 kg
[~2023-06-14 17:20] MED LIST changes: +REGLAN10 M1 PO
[2023-06-14] MEDS ORDERED: Ketorolac Tromethamine 30 MG/ML VIAL IM ONE (19:10)
== END 2023-06-14 19:40 | disposition home or self-care (01) ==
LOC: ED 17:20
DX: S92.511A Displaced fracture of proximal phalanx of right lesser toe(s), initial encounter for closed fracture (principal); I10 Essential (primary) hypertension; E11.9 Type 2 diabetes mellitus without complications; Z88.8 Allergy status to other drugs, medicaments and biological substances; Z98.890 Other specified postprocedural states; Z90.49 Acquired absence of other specified parts of digestive tract; Z90.711 Acquired absence of uterus with remaining cervical stump; Z90.89 Acquired absence of other organs; X50.1XXA Overexertion from prolonged static or awkward postures, initial encounter; Y93.01 Activity, walking, marching and hiking; Y92.512 Supermarket, store or market as the place of occurrence of the external cause; Y99.8 Other external cause status

== ENCOUNTER 2023-06-26 18:51 | Emergency (ER) | payer OTHER ==
[~2023-06-26] VITALS: Ht 165.1 cm; Wt 86.2 kg
[2023-06-26 19:10] VITALS: BP 106/57
== END 2023-06-26 20:51 | disposition home or self-care (01) ==
LOC: ED 18:51
DX: S92.515A Nondisplaced fracture of proximal phalanx of left lesser toe(s), initial encounter for closed fracture (principal); M25.511 Pain in right shoulder; E11.9 Type 2 diabetes mellitus without complications; I10 Essential (primary) hypertension; Z87.442 Personal history of urinary calculi; Z88.8 Allergy status to other drugs, medicaments and biological substances; Z90.49 Acquired absence of other specified parts of digestive tract; Z90.710 Acquired absence of both cervix and uterus; Z98.890 Other specified postprocedural states; Z90.89 Acquired absence of other organs; W10.8XXA Fall (on) (from) other stairs and steps, initial encounter; Y93.89 Activity, other specified; Y92.009 Unspecified place in unspecified non-institutional (private) residence as the place of occurrence of the external cause; Y99.8 Other external cause status

== ENCOUNTER → 2023-09-19 | Outpatient (CLI) | payer MEDICARE | END | disposition home or self-care (01) | LOC: RAD 12:58 | PROVIDERS: ATTEND Podiatrist Foot & Ankle Surgery | DX: M19.071 Primary osteoarthritis, right ankle and foot (principal); M79.671 Pain in right foot; M79.672 Pain in left foot; M77.32 Calcaneal spur, left foot; M77.31 Calcaneal spur, right foot ==

== ENCOUNTER 2023-10-21 14:02 | Emergency (ER) | payer MEDICARE ==
[~2023-10-21] VITALS: Ht 165.1 cm; Wt 85.7 kg
[2023-10-21 14:55] VITALS: BP 133/89
[2023-10-21] MEDS ORDERED: FAMOTIDINE 50 ML IV ONE (15:40)
[2023-10-21] MEDS ORDERED: Dexamethasone Sodium Phospha 20 MG/5 ML VIAL IV ONE (15:40)
[2023-10-21] MEDS ORDERED: PREDNISONE20 M1 PO (16:48)
== END 2023-10-21 16:59 | disposition home or self-care (01) ==
LOC: ED 14:02
DX: L25.9 Unspecified contact dermatitis, unspecified cause (principal); R21 Rash and other nonspecific skin eruption; E11.9 Type 2 diabetes mellitus without complications; I10 Essential (primary) hypertension; Z87.442 Personal history of urinary calculi; Z88.8 Allergy status to other drugs, medicaments and biological substances; Z98.890 Other specified postprocedural states; Z90.49 Acquired absence of other specified parts of digestive tract; Z90.89 Acquired absence of other organs; Z90.710 Acquired absence of both cervix and uterus

== ENCOUNTER 2024-01-03 08:38 | Emergency (ER) | payer MEDICARE ==
[~2024-01-03] VITALS: Ht 165.1 cm; Wt 89.8 kg
[~2024-01-03 08:38] MED LIST changes: +PREDNISONE20 M1 PO
[2024-01-03 08:54] VITALS: BP 104/64
[2024-01-03] MEDS ORDERED: PREDNISONE20 M1 PO (09:00)
== END 2024-01-03 08:57 | disposition home or self-care (01) ==
LOC: ED 08:38
DX: L23.9 Allergic contact dermatitis, unspecified cause (principal); E11.9 Type 2 diabetes mellitus without complications; I10 Essential (primary) hypertension; E78.5 Hyperlipidemia, unspecified; Z87.442 Personal history of urinary calculi; Z86.73 Personal history of transient ischemic attack (TIA), and cerebral infarction without residual deficits; Z91.048 Other nonmedicinal substance allergy status; Z88.8 Allergy status to other drugs, medicaments and biological substances; Z90.49 Acquired absence of other specified parts of digestive tract; Z90.89 Acquired absence of other organs; Z90.710 Acquired absence of both cervix and uterus; Z98.890 Other specified postprocedural states

== ENCOUNTER 2024-07-09 15:10 | Inpatient (IN) | payer MEDICARE ==
[2024-07-09] VITALS (9 sets, daily range): BP systolic 97–150; BP diastolic 46–90
[~2024-07-09] VITALS: Ht 165.1 cm; Wt 108.0 kg
[2024-07-09 15:42] LABS: BASO # 0.1 10*3/uL (0.0-0.1); BASO % 0.8 % (0.0-1.0); EOS # 0.2 10*3/uL (0.0-0.4); EOS % 2.6 % (1.0-4.0); HEMATOCRIT 40.1 % (37.0-47.0); MEAN CELL VOLUME 85.5 fl (81.0-99.0); MEAN CORPUSCULAR HGB 28.4 pg (27.0-31.0); MEAN CORPUSCULAR HGB CONC 33.2 g/dl (33.0-37.0); MEAN PLATELET VOLUME 9.6 fl (9.6-12.3); MONO # 0.6 10*3/uL (0.1-1.0); MONO % 6.9 % (3.0-9.0); NEUT # 6.5 10*3/uL (2.3-7.9); NEUT % 81.1 % (47.0-73.0); PLATELET COUNT AUTOMATED 255 10*3/uL (130-400); RED BLOOD COUNT 4.69 10*6/uL (4.10-5.10); RED CELL DISTRI WIDTH 13.4 % (0-14.5)
[2024-07-09 15:54] LABS: ACT PARTIAL THROMBO TIME 24.7 SECONDS (20.0-32.1)
[2024-07-09 16:19] LABS: ALKALINE PHOSPHATASE 65 U/L (46-116); BUN 20 mg/dl (9-23); CHLORIDE 103 mmol/L (98-107); POTASSIUM 3.8 mmol/L (3.4-5.1); SGPT/ALT 28 U/L (5-49); TOTAL PROTEIN 7.7 gm/dL (6.0-8.0)
[2024-07-09] MEDS ORDERED: IOHEXOL 350 MG/ML 100 ML VIAL IV ONE ×3 (16:25→23:00)
[2024-07-09] MEDS ORDERED: SODIUM CHLORIDE 0.9% 100 ML BAG IV ONE ×2 (16:25→23:00)
[2024-07-09] MEDS ORDERED: Midazolam Hydrochloride 2 MG/2 ML VIAL IV ONE ×2 (16:25→19:15)
[2024-07-09] MEDS ORDERED: SODIUM CHLORIDE 0.9% 100 ML IV ONE (16:43)
[2024-07-09] MEDS ORDERED: FAMOTIDINE 50 ML IV ONE (17:20)
[2024-07-09] MEDS ORDERED: ATORVASTATIN CA40 M1 PO (17:51)
[2024-07-09] MEDS ORDERED: ARNUITY ELLIPT50 MCG INH (17:51)
[2024-07-09] MEDS ORDERED: AZELASTINE137 MCG/0. INH (17:52)
[2024-07-09] MEDS ORDERED: PANTOPRAZOLE SO40 MG PO (17:52)
[2024-07-09] MEDS ORDERED: POTASSIUM CHLO10 MEQ PO (17:52)
[2024-07-09] MEDS ORDERED: SODIUM CHLORIDE 0.9% 1,000 ML IV ONE (19:05)
[2024-07-09] MEDS ORDERED: Piperacillin Sodium/Tazobact 50 ML IV ONE (21:15)
[2024-07-09 22:38] LABS: BILIRUBIN Negative (Negative); BLOOD Negative (Negative); CLARITY Cloudy (Clear); COLOR Yellow (Yellow); GLUCOSE Negative (Negative); KETONE Trace (Negative); LEUKO ESTERASE 1+ (Negative); NITRITE Negative (Negative); PH 7.5 (4.5-8.0)
[2024-07-09 23:20] LABS: BACTERIA 4+; WBC 16-20 wbc/hpf (0-5)
[2024-07-10] VITALS (12 sets, daily range): BP systolic 85–132; BP diastolic 48–80
[2024-07-10] MEDS ORDERED: Oseltamivir Phosphate 75 MG CAP PO ONE (00:40)
[2024-07-10] MEDS ORDERED: Magnesium Hydroxide 30 ML UDC PO PRN (02:30)
[2024-07-10] MEDS ORDERED: BISACODYL 5 MG TAB PO PRN (02:30)
[2024-07-10] MEDS ORDERED: BISACODYL 10 MG SUPP R PRN (02:30)
[2024-07-10] MEDS ORDERED: ACETAMINOPHEN 650 MG SUPP R PRN (02:30)
[2024-07-10] MEDS ORDERED: ACETAMINOPHEN 325 MG TAB PO PRN (02:30)
[2024-07-10] MEDS ORDERED: Ondansetron Hydrochloride 4 MG/2 ML VIAL IV PRN (02:30)
[2024-07-10] MEDS ORDERED: Albuterol Sulf/Ipratropium 3 ML VIAL NEB SCH (02:55)
[2024-07-10] MEDS ORDERED: Piperacillin Sodium/Tazobact 50 ML IV SCH (04:00)
[2024-07-10] MEDS ORDERED: AZITHROMYCIN 250 ML IV SCH (06:00)
[2024-07-10] MEDS ORDERED: SODIUM CHLORIDE 0.9% 1,000 ML IV SCH (07:15)
[2024-07-10] MEDS ORDERED: Enoxaparin Sodium 40 MG/0.4 ML SYR SC SCH (10:00)
[2024-07-10] MEDS ORDERED: GUAIFENESIN 600 MG TAB ER PO SCH (10:00)
[2024-07-10] MEDS ORDERED: Meclizine Hydrochloride 12.5 MG TAB PO ONE (13:15)
[2024-07-11 01:14] VITALS: BP 112/63
[2024-07-11 05:25] LABS: ALKALINE PHOSPHATASE 49 U/L (46-116); BUN 14 mg/dl (9-23); CHLORIDE 105 mmol/L (98-107); CHOLESTEROL 132 mg/dL (<200); FREE T4 1.07 ng/dl (0.89-1.76); LDL CHOLESTEROL 83 mg/dL (9-159); POTASSIUM 3.9 mmol/L (3.4-5.1); SGPT/ALT 22 U/L (5-49); TOTAL PROTEIN 6.2 gm/dL (6.0-8.0); TRIGLYCERIDES 90 mg/dl (<150)
[2024-07-11 06:31] LABS: BASO % 0.7 % (0.0-1.0); EOS # 0.3 10*3/uL (0.0-0.4); EOS % 4.5 % (1.0-4.0); HEMATOCRIT 34.8 % (37.0-47.0); MEAN CORPUSCULAR HGB 28.7 pg (27.0-31.0); MEAN CORPUSCULAR HGB CONC 31.6 g/dl (33.0-37.0); MEAN PLATELET VOLUME 10.7 fl (9.6-12.3); MONO # 0.7 10*3/uL (0.1-1.0); MONO % 11.8 % (3.0-9.0); NEUT # 2.9 10*3/uL (2.3-7.9); NEUT % 48.1 % (47.0-73.0); RED BLOOD COUNT 3.83 10*6/uL (4.10-5.10); RED CELL DISTRI WIDTH 13.8 % (0-14.5)
[2024-07-11 06:33] LABS: MEAN CELL VOLUME 90.9 fl (81.0-99.0); PLATELET COUNT AUTOMATED 172 10*3/uL (130-400)
[2024-07-11 06:47] VITALS: BP 125/65
[2024-07-11 08:10] VITALS: BP 119/60
[2024-07-11] MEDS ORDERED: NOVOLOG10 ML IV (11:15)
[2024-07-11] MEDS ORDERED: ALPRAZolam 0.25 MG TAB PO PRN (11:55)
[2024-07-11] MEDS ORDERED: BUDESONIDE 0.5 MG AMP NEB SCH (11:55)
[2024-07-11] MEDS ORDERED: Acetaminophen/Hydrocodone ES 7.5/325 tablet PO PRN (12:00)
[2024-07-11] MEDS ORDERED: Insulin Lispro, Recombinant 1 UNIT/0.01 ML UN SC SCH (16:30)
[2024-07-11] MEDS ORDERED: POTASSIUM CHLORIDE 10 MEQ TAB PO SCH (18:00)
[2024-07-11] MEDS ORDERED: ATORVASTATIN CALCIUM 40 MG TABLET PO SCH (18:00)
[2024-07-11 19:58] VITALS: BP 140/76
[2024-07-11] MEDS ORDERED: GABAPENTIN 600 MG TAB PO SCH (22:00)
[2024-07-11] MEDS ORDERED: Azelastine Hydrochloride 30 ML NASAL SPRAY NAS SCH (22:00)
[2024-07-11 22:19] VITALS: BP 124/64
[2024-07-12 04:48] VITALS: BP 108/62
[2024-07-12 05:12] LABS: BUN 13 mg/dl (9-23); CHLORIDE 106 mmol/L (98-107); POTASSIUM 3.9 mmol/L (3.4-5.1)
[2024-07-12 05:23] LABS: BASO # 0.1 10*3/uL (0.0-0.1); EOS # 0.5 10*3/uL (0.0-0.4); EOS % 8.7 % (1.0-4.0); HEMATOCRIT 34.7 % (37.0-47.0); MEAN CELL VOLUME 90.4 fl (81.0-99.0); MEAN CORPUSCULAR HGB 28.9 pg (27.0-31.0); MEAN PLATELET VOLUME 10.2 fl (9.6-12.3); MONO # 0.4 10*3/uL (0.1-1.0); MONO % 7.3 % (3.0-9.0); NEUT # 1.8 10*3/uL (2.3-7.9); NEUT % 31.2 % (47.0-73.0); PLATELET COUNT AUTOMATED 173 10*3/uL (130-400); RED BLOOD COUNT 3.84 10*6/uL (4.10-5.10); RED CELL DISTRI WIDTH 13.8 % (0-14.5); WHITE BLOOD COUNT 5.8 10*3/uL (4.8-10.8)
[2024-07-12] MEDS ORDERED: Pantoprazole Sodium 40 MG TAB PO SCH (06:00)
[2024-07-12 06:32] VITALS: BP 124/77
[2024-07-12] MEDS ORDERED: Clopidogrel Hydrogen Sulfate 75 MG TAB PO SCH (10:00)
[2024-07-12] MEDS ORDERED: Ketorolac Tromethamine 15 MG/ML VIAL IV ONE (13:10)
[2024-07-12] MEDS ORDERED: cefTRIAXone Sodium 1 GM in SYRINGE INFUSION 10 ML IV SCH (14:00)
[2024-07-12 19:30] VITALS: BP 111/62
[2024-07-13 00:30] VITALS: BP 121/70
[2024-07-13 05:40] LABS: BUN 13 mg/dl (9-23); CHLORIDE 107 mmol/L (98-107); POTASSIUM 4.3 mmol/L (3.4-5.1)
[2024-07-13 06:07] VITALS: BP 116/67
[2024-07-13 06:25] LABS: BASO % 0.7 % (0.0-1.0); EOS # 0.6 10*3/uL (0.0-0.4); EOS % 9.8 % (1.0-4.0); MEAN CELL VOLUME 89.6 fl (81.0-99.0); MEAN CORPUSCULAR HGB 27.9 pg (27.0-31.0); MEAN CORPUSCULAR HGB CONC 31.1 g/dl (33.0-37.0); MEAN PLATELET VOLUME 10.1 fl (9.6-12.3); MONO # 0.5 10*3/uL (0.1-1.0); MONO % 8.3 % (3.0-9.0); NEUT % 34.8 % (47.0-73.0); PLATELET COUNT AUTOMATED 180 10*3/uL (130-400); RED BLOOD COUNT 4.02 10*6/uL (4.10-5.10); RED CELL DISTRI WIDTH 13.8 % (0-14.5); WHITE BLOOD COUNT 5.7 10*3/uL (4.8-10.8)
[2024-07-13 08:00] VITALS: BP 120/63
[2024-07-13] MEDS ORDERED: Cholecalciferol 5,000 IU CAP (125 MCG) PO SCH (10:00)
[2024-07-13 11:56] VITALS: BP 121/71
[2024-07-13] MEDS ORDERED: OMNICEF300 MG PO (12:43)
[2024-07-13] MEDS ORDERED: TAMIFLU 75MG CA75 MG PO (12:43)
[2024-07-13] MEDS ORDERED: VITAMIN D3125 MC1 PO (12:43)
[2024-07-13] MEDS ORDERED: ASPIRIN ADULT L81 M2 PO (12:44)
== END 2024-07-13 13:48 | disposition home or self-care (01) | DRG 871 ==
LOC: ED 15:10 → EDHOLD 07-10 02:21
PROVIDERS: Internal Medicine; Student in an Organized Health Care Education/Training Program; ADMIT Internal Medicine; ATTEND Internal Medicine
DX: A41.9 Sepsis, unspecified organism (principal); I63.9 Cerebral infarction, unspecified; J10.00 Influenza due to other identified influenza virus with unspecified type of pneumonia; N30.00 Acute cystitis without hematuria; R65.20 Severe sepsis without septic shock; E83.52 Hypercalcemia; E78.5 Hyperlipidemia, unspecified; G40.909 Epilepsy, unspecified, not intractable, without status epilepticus; E11.42 Type 2 diabetes mellitus with diabetic polyneuropathy; I10 Essential (primary) hypertension; Z20.822 Contact with and (suspected) exposure to COVID-19; E66.9 Obesity, unspecified; Z90.49 Acquired absence of other specified parts of digestive tract; Z79.4 Long term (current) use of insulin; Z90.710 Acquired absence of both cervix and uterus; Z82.61 Family history of arthritis; Z82.3 Family history of stroke; Z83.3 Family history of diabetes mellitus; Z81.8 Family history of other mental and behavioral disorders; Z82.49 Family history of ischemic heart disease and other diseases of the circulatory system; Z88.8 Allergy status to other drugs, medicaments and biological substances; Z79.899 Other long term (current) drug therapy

== ENCOUNTER → 2025-02-12 | Outpatient (CLI) | payer MEDICARE ==
[~2025-02-12] MED LIST changes: +ARNUITY ELLIPT50 MCG INH; +ASPIRIN ADULT L81 M2 PO; +ATORVASTATIN CA40 M1 PO; +AZELASTINE137 MCG/0. INH; +NOVOLOG10 ML IV; +OMNICEF300 MG PO; +PANTOPRAZOLE SO40 MG PO; +POTASSIUM CHLO10 MEQ PO; +VITAMIN D3125 MC1 PO
== END | disposition home or self-care (01) ==
LOC: ORTHO 03:50
PROVIDERS: ATTEND Orthopaedic Surgery
DX: M25.522 Pain in left elbow (principal)